=== PATIENT | female | born 1955 | race Caucasian/White ===

== ENCOUNTER 2017-10-28 23:15 | Emergency (ER) | payer OTHER, MEDICAID, MEDICARE ==
[2017-10-29 01:00] LABS: AMPHETAMINES LEVEL URINE NEGATIVE (NEGATIVE); BARBITURATES URINE NEGATIVE (NEGATIVE); BENZODIAZEPINES URINE NEGATIVE (NEGATIVE); CANNABINOIDS URINE NEGATIVE (NEGATIVE); COCAINE METABOLITE URINE NEGATIVE (NEGATIVE); METHADONE URINE NEGATIVE (NEGATIVE); OPIATES URINE NEGATIVE (NEGATIVE); PHENCYCLIDINE URINE NEGATIVE (NEGATIVE)
== END 2017-10-29 02:32 | disposition home or self-care (01) ==
LOC: M ED 23:15
DX: F32.1 Major depressive disorder, single episode, moderate (principal); F17.210 Nicotine dependence, cigarettes, uncomplicated; Z88.1 Allergy status to other antibiotic agents; Z79.899 Other long term (current) drug therapy; Z79.02 Long term (current) use of antithrombotics/antiplatelets
CPT/HCPCS: 80307

== ENCOUNTER 2018-10-02 09:54 | Emergency (ER) | payer OTHER ==
[~2018-10-02] VITALS: Ht 167.6 cm; Wt 63.4 kg
[2018-10-02 09:54] VITALS: BP 147/67
[~2018-10-02 09:54] MED LIST: AMLO5TAB6; ATOR1TAB21; CLOP75TA2; ESCI10TA2; GABA-1171; LABE10TAB; PANT40TA3
[2018-10-02] MEDS ORDERED: ASPI1TAB PO (10:08)
[2018-10-02] MEDS ORDERED: NORV5TAB PO (10:08)
[2018-10-02] MEDS ORDERED: methylPREDNISolone INJ 125 MG/2 ML VIAL (J2930) IM ONE (10:15)
[2018-10-02] MEDS ORDERED: ACETAMINOPHEN TAB 650MG DOSE (2X325MG) PO ONE (10:15)
--- NOTE | 2018-10-02 10:47 | REP ---
Clinical: Fall with radiculopathy. Technique: Axial noncontrast images from the skull base to the thoracic inlet with coronal and sagittal re-formations Findings: Normal alignment and lordosis is maintained. Cervical vertebral bodies including transverse processes and spinous processes are intact and there is no evidence for acute fracture / compression injury or subluxation. Spinal canal is patent. Posterior elements are intact. Paravertebral soft tissues are normal. Impression: Normal noncontrast cervical spine CT. No evidence for acute pathology or trauma/injury. Electronically Signed by Walter Dent MD 10/02/2018 10:39 A
[2018-10-02] MEDS ORDERED: ZANA4TAB PO (11:02)
== END 2018-10-02 11:15 | disposition home or self-care (01) ==
LOC: M ED 09:54
DX: S46.912A Strain of unspecified muscle, fascia and tendon at shoulder and upper arm level, left arm, initial encounter (principal); X50.0XXA Overexertion from strenuous movement or load, initial encounter; Y92.89 Other specified places as the place of occurrence of the external cause; Y99.0 Civilian activity done for income or pay; I10 Essential (primary) hypertension; F33.9 Major depressive disorder, recurrent, unspecified; F41.9 Anxiety disorder, unspecified; E78.00 Pure hypercholesterolemia, unspecified; Z95.1 Presence of aortocoronary bypass graft; Z79.899 Other long term (current) drug therapy; Z88.1 Allergy status to other antibiotic agents; Z88.8 Allergy status to other drugs, medicaments and biological substances; F17.210 Nicotine dependence, cigarettes, uncomplicated
CPT/HCPCS: 72125; 96372; 99282; J2930

== ENCOUNTER → 2018-11-04 | Outpatient (CLI) | payer OTHER ==
[~2018-11-04] MED LIST changes: +ASPI1TAB PO; +NORV5TAB PO; +ZANA4TAB PO
== END ==
LOC: M OUTALCOH 09:15
PROVIDERS: ATTEND Psychiatry & Neurology Psychiatry
DX: Z03.89 Encounter for observation for other suspected diseases and conditions ruled out (principal)

== ENCOUNTER 2018-11-24 09:50 | Outpatient (RCR) | payer OTHER | END 2018-11-28 | LOC: M OUTALCOH 09:50 | PROVIDERS: ATTEND Psychiatry & Neurology Psychiatry | DX: F10.10 Alcohol abuse, uncomplicated (principal) ==

== ENCOUNTER → 2018-12-21 | Outpatient (CLI) | payer OTHER ==
[~2018-12-21] MED LIST changes: -ASPI1TAB PO; +ASPI81TA26 PO
== END ==
LOC: M OUTALCOH 09:19
PROVIDERS: ATTEND Psychiatry & Neurology Psychiatry
DX: F10.10 Alcohol abuse, uncomplicated (principal)

== ENCOUNTER → 2018-12-28 | Outpatient (RCR) | payer OTHER | LOC: M OUTALCOH 09:43 | PROVIDERS: ATTEND Psychiatry & Neurology Psychiatry | DX: F10.10 Alcohol abuse, uncomplicated (principal); F17.200 Nicotine dependence, unspecified, uncomplicated ==

== ENCOUNTER 2019-01-25 16:00 | Outpatient (RCR) | payer OTHER | END 2019-01-28 | LOC: M OUTALCOH 16:00 | PROVIDERS: ATTEND Psychiatry & Neurology Psychiatry | DX: F10.10 Alcohol abuse, uncomplicated (principal); F17.200 Nicotine dependence, unspecified, uncomplicated ==

== ENCOUNTER 2019-02-23 12:00 | Outpatient (RCR) | payer OTHER, SELFPAY | END 2019-02-27 | LOC: M OUTALCOH 12:00 | PROVIDERS: ATTEND Psychiatry & Neurology Psychiatry | DX: F10.10 Alcohol abuse, uncomplicated (principal); F17.200 Nicotine dependence, unspecified, uncomplicated ==

== ENCOUNTER 2019-03-01 10:08 | Outpatient (RCR) | payer SELFPAY | END 2019-03-30 | LOC: M OUTALCOH 10:08 | PROVIDERS: ATTEND Psychiatry & Neurology Psychiatry | DX: F10.10 Alcohol abuse, uncomplicated (principal); F17.200 Nicotine dependence, unspecified, uncomplicated ==

== ENCOUNTER → 2019-11-07 | Outpatient (CLI) | payer MEDICARE, MEDICAID | LOC: M PLALAB 15:42 | PROVIDERS: ATTEND Surgery | DX: Z13.79 Encounter for other screening for genetic and chromosomal anomalies (principal) ==

== ENCOUNTER → 2019-11-18 | Outpatient (CLI) | payer MEDICAID, MEDICARE ==
[~2019-11-18] MED LIST changes: +PROHANCE 279.3MG/ML 15ML VIAL (A9576) As Ordered ONE
--- NOTE | 2019-11-21 14:06 | REP ---
MRI BILATERAL BREAST WITH AND WITHOUT CONTRAST: HISTORY: Right breast ductal carcinoma in situ. Comparison mammogram 10/06/2019 and diagnostic mammogram and postbiopsy mammogram 10/25/2019. The patient has had recent stereotactic biopsy of the right breast for microcalcifications in the lateral aspect. The biopsy was performed 10/25/2019. TECHNIQUE: MRI of bilateral breasts performed in the axial, coronal and sagittal planes prior to and following the intravenous administration of 13 mL ProHance. Images are evaluated in the [employer] software including dynamic post IV gadolinium axial T1 fat sat images, subtraction images, color overlay images and CAD images. Moderate fibroglandular tissue is seen bilaterally. There is mild background parenchymal enhancement. There is no axillary adenopathy. There is focal small artifact in the lateral right breast at about 9-o'clock position from the recently placed biopsy clip. There is linear mild ill-defined edema and enhancement extending both medially and laterally from the site of the metallic clip, along the tract of the biopsy. This is most consistent with mild postbiopsy edema, hemorrhage and granulation tissue. No suspicious enhancing mass or morphologic abnormality is seen bilaterally. Artifact is seen along the sternum from prior sternotomy. IMPRESSION: BIRADS category 6 known breast cancer lateral right breast at approximately 9 -o'clock position. There is a metallic clip at that location placed following the recent stereotactic biopsy 10/25/2019. That biopsy showed ductal carcinoma in situ. There is mild ill-defined adjacent high signal edema on T2-weighted images. There is mild enhancing granulation tissue in the tract of the biopsy. There is no suspicious enhancing mass or morphologic abnormality bilaterally. Electronically Signed by Cheikh Alfred MD 11/21/2019 02:51 P
== END ==
LOC: M RAD 13:58
PROVIDERS: ATTEND Surgery
DX: D05.11 Intraductal carcinoma in situ of right breast (principal)
CPT/HCPCS: A9576; C8908

== ENCOUNTER → 2019-11-28 | Outpatient (CLI) | payer MEDICAID ==
[~2019-11-28] MED LIST changes: +AMLO10TA5 PO; -ESCI10TA2; +ESCI10TA2 PO; +KEFL500C17 PO; +LOSA100T50 PO; +NEUR100C PO; +OXYC1TAB23 PO; -PANT40TA3; +PANT40TA3 PO; -PROHANCE 279.3MG/ML 15ML VIAL (A9576) As Ordered ONE; +ROSU40TA4 PO; +ROSU5TAB5 PO; +VITA50005 PO; +vitamin B12 PO
--- NOTE | 2019-11-28 10:30 | REPPI ---
Chest x-ray: Two views. History: Preop. Findings: The lungs are well inflated and clear. Median sternotomy wires and clips are noted. Coronary artery stent material is visible. The heart is not enlarged. The pleural angles are sharp. Pulmonary vasculature is not increased. No significant bony abnormality is seen. Impression: No active disease. Electronically Signed by Breezy Rubio MD 11/28/2019 10:22 A
== END ==
LOC: M PLAIMG 09:48
PROVIDERS: ATTEND Surgery
DX: Z01.818 Encounter for other preprocedural examination (principal)

== ENCOUNTER 2019-11-29 10:26 | Observation (INO) | payer MEDICAID ==
[2019-11-29] VITALS (7 sets, daily range): BP systolic 130–141; BP diastolic 61–68
[~2019-11-29] VITALS: Ht 165.1 cm; Wt 66.0 kg
[~2019-11-29 10:26] MED LIST changes: +HEPARIN SOD (PORCINE) 5000 UNITS/ML VIAL (J1644 PER 1000UNITS) SQ ONE; -KEFL500C17 PO; +LIDOCAINE 1% MDV 20ML VIAL SQ PRN; +LR 1,000 ML IV ONE; -OXYC1TAB23 PO; +ceFAZolin SOD 2 GM in IV 1 EA IV ONE
[2019-11-29] MEDS ORDERED: KETOROLAC 60 MG/2 ML VIAL (J1885) As Ordered ONE (11:10)
[2019-11-29] MEDS ORDERED: propofoL 200 MG/20 ML VIAL As Ordered ONE ×2 (11:13→12:11)
[2019-11-29] MEDS ORDERED: LIDOCAINE 2% INJ 100 MG/5 ML SDV (FOR ANES.) As Ordered ONE ×2 (11:13→12:34)
[2019-11-29] MEDS ORDERED: MIDAZOLAM INJ 2 MG/2 ML VIAL (J2250) As Ordered ONE (11:14)
[2019-11-29] MEDS ORDERED: dexameTHASONE 4 MG/ML 1ML VIAL (J1100 PER 1MG) As Ordered ONE (11:14)
[2019-11-29] MEDS ORDERED: ONDANSETRON 4MG/2ML VIAL (J2405) As Ordered ONE (11:14)
[2019-11-29] MEDS ORDERED: fentaNYL 100 MCG/2 ML INJECTION (J3010) As Ordered ONE ×2 (11:14→14:39)
[2019-11-29] MEDS ORDERED: ROCURONIUM BROMIDE 50 MG/5 ML VIAL As Ordered ONE (11:14)
[2019-11-29] MEDS ORDERED: BUPIVACAINE HCL 0.25% 30ML VIAL As Ordered ONE (13:02)
[2019-11-29] MEDS ORDERED: LIDOCAINE 1% SDV INJ 30 ML VIAL As Ordered ONE (13:02)
[2019-11-29] MEDS ORDERED: BUPIVACAINE LIPOSOME/PF 1.3% 20ML VIAL (13.3MG/ML)(EXPAREL)(C9290 PER1MG) As Ordered ONE (13:39)
[2019-11-29] MEDS ORDERED: GENTAMICIN SULF INJ 80MG/2ML VIAL (J1580) As Ordered ONE (13:43)
--- NOTE | 2019-11-29 13:49 | REP ---
Right Breast Lymphoscintigraphy The procedure was performed by KOLTON Cadena, under the direct supervision of Dr. Alfred. The risks and benefits of the procedure were explained to the patient and informed consent was obtained both verbally and written. Directly prior to the start of the procedure, a formal timeout was completed in the procedure room. Using topical anesthetic and sterile technique .997 mCi of technetium 99m filtered sulfur colloid was injected subdermally in eight fractionated periareolar injections. Images obtained 1 hour after injection show a dominant axillary focus. Impression: 1. Right-sided dominant axillary focus. Reviewed by KOLTON Payan 11/29/2019 01:41 P Electronically Signed by Cheikh Alfred MD 11/29/2019 01:42 P
[2019-11-29] MEDS ORDERED: ePHEDrine SULFATE 25 MG/5 ML(5MG/ML) SYRINGE As Ordered ONE ×3 (14:17→15:56)
[2019-11-29] MEDS ORDERED: LACRILUBE (AKWA TEARS) OPHTH OINT 3.5 GM As Ordered ONE (14:23)
[2019-11-29] MEDS ORDERED: ACETAMINOPHEN 1000MG 100ML IV BTL (OFIRMEV) (J0131 PER 10MG) As Ordered ONE (14:36)
[2019-11-29] MEDS ORDERED: SUGAMMADEX SODIUM 500 MG/5 ML VIAL (BRIDION) As Ordered ONE (15:54)
--- NOTE | 2019-11-29 16:55 | POST-OPPD ---
Postoperative Procedure Note Date Of Procedure: Nov 29, 2019 PREOPERATIVE DIAGNOSIS: Right breast cancer, Acquired deformity right breast POSTOPERATIVE DIAGNOSIS: same FINDINGS: right breast mastectomy. 235gm PROCEDURE: Immediate right breast pre pectoral reconstruction with end worker, artificial dermis and with intraoperative florescence angiography (SPY). SURGEON: Dr Syed LOBBY CONCIERGE: Dr Booth ANESTHESIA: general SPECIMENS: none ESTIMATED BLOOD LOSS: 25cc total case REPLACED: none DRAINS: 19F Anibal drain COMPLICATIONS: none POSTOPERATIVE CONDITION: stable OTTO Dalton DO Nov 29, 2019 16:55
[2019-11-29] MEDS ORDERED: LR 1,000 ML IV SCH (17:00)
[2019-11-29] MEDS ORDERED: HYDROMORPHONE HCL 0.5 MG/ 0.5 ML SYRINGE (J1170 PER 1) IV PRN (17:00)
[2019-11-29] MEDS ORDERED: ONDANSETRON 4MG/2ML VIAL (J2405) IV PRN (17:00)
[2019-11-29] MEDS ORDERED: fentaNYL 100 MCG/2 ML INJECTION (J3010) IV PRN (17:00)
[2019-11-29] MEDS ORDERED: oxyCODONE 5MG TAB PO PRN (17:00)
[2019-11-29] MEDS ORDERED: ACETAMINOPHEN TAB 650MG DOSE (2X325MG) PO PRN (18:30)
[2019-11-29] MEDS ORDERED: MOM 30ML SUSPENSION UDC PO PRN (18:30)
--- NOTE | 2019-11-29 18:42 | HPEPDOC ---
[facility] Medical History & Physical Date of Admission Nov 29, 2019 Date of Service: Nov 29, 2019 Attending Physician: KVNG ARENAS MD History and Physical CHIEF COMPLAINT: R breast mastectomy with pre-pectoral reconstruction with first coat operator HISTORY OF PRESENT ILLNESS: Leonor North is a 64 YO F with recently diagnosed R breast DCIS who today underwent R breast mastectomy with Drs. Syed and Leobardo. Hospitalist team called for admission and postoperative care. Patient reports she is not currently in any pain. She has R chest wall dressing and drain in place. She also has nerve block in place. She denies any shortness of breath, chest pain, abdominal pain or nausea. PAST MEDICAL HISTORY: hypertension hypercholesterolemia Arthritis R Breast DCIS - 10/2019 urinary incontinence PAST SURGICAL HISTORY: CAD Hx of [place] in 2012 open heart surgery - blockage 2012 cardiac stents Right breast biopsy - DCIS 10/20 hysterectomy bso tubal ligation carpal tunnel surgery 1997- excisional biopsy - benign R Breast Bx (@[facility]) - DCIS, high grade 10/25/19 SOCIAL HISTORY: Current 1/2 ppd smoker x1 year, reports 1-2 drinks of alcohol weekly, no other drugs FAMILY HISTORY: Father with brain cancer ALLERGIES: Please see below. REVIEW OF SYSTEMS: CONSTITUTIONAL: Feels well. No fever or chills HEENT: denies vision changes, no sinus problems, denies any trouble swallowing CARDIOVASCULAR: no palpitations RESPIRATORY: Denies any shortness of breath GENITOURINARY: No dysuria MUSCULOSKELETAL: Denies any joint/muscle pain GASTROINTESTINAL: Denies abdominal pain, no nausea/vomiting/diarrhea SKIN: No new rashes or lesions NEUROLOGICAL: No loss of sensation PSYCHIATRIC: Reports normal mood, no delusions or hallucinations ENDOCRINE: No hot/cold intolerance HEMATOLOGIC/LYMPHATIC: No easy bruising, no lumps/bumps ALLERGIC/IMMUNOLOGIC: No sinus symptoms HOME MEDICATIONS: Please see below. PHYSICAL EXAMINATION: VITAL SIGNS: Please see below. GENERAL APPEARANCE: Laying in bed, appears stated age, no acute distress, calm, cooperative HEENT: EOMI, PERRLA, neck is supple with no thyromegaly or lymphadenopathy RESPIRATORY: Lungs are clear to auscultation bilaterally with no adventitious b reath sounds appreciated CARDIOVASCULAR: no JVD, RRR,no murmurs/rubs/gallops CHEST: R chest wall surgical bandage in place with surgical drain in place. No surrounding tenderness/erythema ABDOMEN: Soft, nontender to palpation in all four quadrants, no mass es/organomegaly EXTREMITIES: no clubbing, cyanosis or edema noted NEUROLOGICAL: No obvious focal deficits PSYCHIATRIC: normal mood/affect Skin: No rashes or ulcers. LN: No significant cervical or inguinal lymphadenopathy LABORATORY DATA: See below. IMAGING: none MICROBIOLOGY: Please see below. ASSESSMENT: This is a 64 YO F with history of CAD and recent diagnosis of R DCIS who is s/p R breast mastectomy and tissue first coat operator placement. Hospitalist team was called for medical and postoperative management. . PLAN: 1. R breast mastectomy: -Postoperative wound care per Drs. Syed and Leobardo -Continue IV Ancef with plan to dc home on oral Cephalexin -Pain management with Tylenol, Percocet 2 tabs Q6h as needed for pain -IVF LR 75cc/hr for now 2. History of CAD: -Continue Aspirin 3. HTN: -Continue Amlodipine and Losartan 4. Chronic pain: -Continue Gabapentin 5. Mood disorder: -Continue Lexapro DISPO: Pending clinical improvement. Possible discharge in 24-48h Attending Addendum: I discussed the care/management of this patient with Resident in detail and agree with the plan above. Vital Signs Vital Signs Date Time Temp Pulse Resp B/P (MAP) Pulse Ox O2 Delivery O2 Flow Rate FiO2 11/29/19 18:12 98.1 68 16 135/62 (86) 96 Nasal Cannula 2 Home Medications Scheduled Amlodipine Besylate (Amlodipine Besylate) 10 Mg Tablet, 10 MG PO DAILY Aspirin (Aspirin EC) 81 Mg Tab, 1 TAB PO DAILY for pain Cephalexin (Keflex) 500 Mg Capsule, 500 MG PO TID Ergocalciferol (Vitamin D2) (Vitamin D2) 50,000 Units Cap, 1 CAP PO QWEEK On Sundays Escitalopram Oxalate (Escitalopram Oxalate) 10 Mg Tab, 1 TAB PO DAILY Gabapentin (Neurontin) 100 Mg Capsule, 200 MG PO BID Losartan Potassium (Losartan Potassium) 100 Mg Tablet, 100 MG PO QHS Rosuvastatin Calcium (Rosuvastatin Calcium) 40 Mg Tablet, 40 MG PO DAILY Scheduled PRN Oxycodone HCl/Acetaminophen (Oxycodone-Acetaminophen 5-325) 1 Each Tablet, 1 TAB PO TIDP PRN for pain Allergies Coded Allergies: azithromycin (Verified Allergy, Severe, swelling, 11/25/19) lisinopril (Verified Adverse Reaction, Mild, cough, 11/25/19) A-FIB/CHADSVASC A-FIB History Current/History of A-Fib/PAF?: No GME ATTESTATION GME ATTESTATION My faculty preceptor for this patient encounter was physically present during the encounter and was fully available. All aspects of the patient interview, examination, medical decision making process, and medical care plan development were reviewed and approved by the faculty preceptor. The faculty preceptor is aware and concurs with the plan as stated in the body of this note and will attest to such by his/her cosignature. ANA PATEL MD Nov 29, 2019 18:42 KVNG ARENAS MD Nov 30, 2019 20:25
[2019-11-29] MEDS ORDERED: PERCOCET 5MG/325MG TAB PO PRN (18:45)
[2019-11-29] MEDS: LR 1,000 ML IV SCH (19:39)
[2019-11-29] MEDS: GABAPENTIN 100 MG CAP PO SCH (20:11)
[2019-11-29] MEDS: DOCUSATE SODIUM 100 MG CAP PO SCH (20:11)
[2019-11-29] MEDS ORDERED: LOSARTAN 50 MG TAB PO SCH (21:00)
--- NOTE | 2019-11-29 21:11 | RO ---
DATE OF PROCEDURE: 11/29/2019 PREPROCEDURE DIAGNOSIS: Right breast cancer, acquired deformity right breast. POSTPROCEDURE DIAGNOSIS: Right breast cancer, acquired deformity right breast. PROCEDURE: Immediate right breast prepectoral reconstruction with laborer vegetable farm, artificial dermis and with intraoperative fluorescent angiography using SPY. SURGEON: Dr. Yanely Syed MANAGER VOICE: Dr. Mary Booth ANESTHESIA: General. Specimens were sent in the first part of the procedure. Blood loss: 25 mL for the total case; no replacement. One 19-[place]oz[place]ican Anibal drain. No complications. DESCRIPTION OF PROCEDURE: This is a 64-year-old female diagnosed with right ductal carcinoma in situ (DCIS). Patient is scheduled for right simple mastectomy with sentinel lymph node biopsy with immediate reconstruction. Patient was counseled preoperatively regarding the reconstruction. She is a good candidate for the prepectoral reconstruction. Her measurements are indicating that she would benefit from 275 laborer vegetable farm. All the risks and benefits and alternatives discussed with the patient in detail, and she is ready to proceed. The day of surgery, she was seen in the holding area, and then she was brought into the operating room and the mastectomy part of procedure was performed by Dr. Booth, and it is dictated separately with a sentinel lymph node biopsy as well. After that portion of the procedure was completed, the area was painted with Betadine solution and then the clean drapes were outlining the incision. The incision that we marked was the inferior lateral inframammary incision. We examined the pocket, has good hemostasis. Flaps are in good condition. The fluorescent intraoperative angiography is done by infiltrating the dye by anesthesia, 2 mL, and then the confirmation of angiography is done with good perfusion throughout the flap with some delayed perfusion around the nipple areolar complex. While Dr. Booth is irrigating the pocket with antibiotic solution and also confirming the hemostasis, I brought in the laborer vegetable farm to the back table, as well as the AlloMax, which we will be using as an artificial dermis 16 x 20 cm. AlloMax was soaked in normal saline and antibiotic solution and was washed in three bob, and then we wrapped the AlloMax around the fully expanded to 275 mL with air laborer vegetable farm, which was a [place] moderate profile laborer vegetable farm. The wrapping was done, it is a complete wrapping, and #2-0 PDS sutures were used on the back of the laborer vegetable farm to suture them in place. Then, we brought in our implant to the field and it was introduced into the pocket. After good location was confirmed, the stay stitches were tacked to the pectoralis muscle superiorly, medially, inferiorly, and laterally using #2-0 PDS sutures. A 19-[place]ozamb[place] Anibal drain was placed through a separate stab incision and placed in the lateral position of the breast, and then we started our closure. I felt that the laborer vegetable farm was slightly too tight for the pocket at this moment, so we deflated it down 150 mL of air and tension-free closure was completed in layers with #3-0 Vicryl, #2-0 Vicryl, #3-0 Monocryl and #4-0 Monocryl sutures. Then, we repeated our SPY angiography, fluorescent angiography using SPY, and at this point, we had confirmation of complete perfusion throughout the whole breast, including the nipple areolar complex. We used a specialized Prevena dressing for the dressing, and it was fitted with a small dressing without any difficulties, and the drain was dressed separately with a sterile gauze and Tegaderm. The patient was extubated in the operating room without any difficulties and transferred to the recovery room in stable condition. As a note, we also injected a total of 12 mL of Exparel solution into the pectoralis major muscle. ABDELRAHMAND
--- NOTE | 2019-11-29 21:44 | ROOPDOC ---
[facility] Report Of Operation Report of Operation DATE OF PROCEDURE: 11/29/19 PREPROCEDURE DIAGNOSES: Right breast high grade DCIS with necrosis POSTPROCEDURE DIAGNOSES: Right breast high-grade DCIS with necrosis PROCEDURE: Right breast nipple cystic doing and right sentinel lymph node biopsy with immediate tissue sports physiologist placement SURGEON: Mando Booth PEST CONTROL WORKER HELPER: Yanely Syed ANESTHESIA: Anesthesia was general ESTIMATED BLOOD LOSS: Approximately 25 mL. COMPLICATIONS: None. REMARKS: 2 lymph nodes with high signal and one palpable lymph nodes were identified DESCRIPTION OF PROCEDURE: INDICATIONS: Ms. North is a 64 year old lady who was found to have over 3 cm calcifications of her right breast mammogram. Biopsy of the calcifications was done and showed high grade DCIS with necrosis. No ER was done on the biopsy specimen. We discussed surgical options and patient opted for mastectomy. She is a candidate for nipple sparing mastectomy. I explained to her that if the cancer is found in the tissue removed directly from underneath the nipple then unfortunately the nipple will need to be removed in the future. I explained to the patient that right breast sentinel lymph node biopsy is also indicated b ecause if invasive component is found in the specimen we will not be able to sample the lymph nodes at later time as the breast will be gone. Risks and possible complications of surgical procedure including bleeding, infection and injury to surrounding structures were explained to the patient and she wished to proceed. Consent was signed. Subcutaneous heparin 5000 units was given to patient in the preop area. Lymphoscintigraphy was reviewed preoperatively and the tracer was found in the right axilla. DETAILS: Patient was taken to the operating room and placed supine on the operating room table. A sign in was called stating patients name, date of and the procedure to be done. Preoperative antibiotics were infused. Smooth induction of general anesthesia was done. Patients hands were extended on arm rests. Care was taken not to over extend patients arms. English catheter was placed. Patients right breast and axilla were prepped and draped in the usual fashion. Neoprobe was used to delonte the site of maximal signal in the axilla. Appropriate time out was done and patients name, date of , and the procedure to be done were confirmed. Procedure was started with right mastectomy. Right inferolateral incision was made at the inframammary fold with scalpel number 15. Subcutaneous flaps were developed using electrocautery. Dissection was carried from inframammary fold inferiorly to the sternum medially, inferior aspect of clavicle superiorly and axilla laterally. The breast tissue was dissected from the muscle posteriorly and pectoralis fascia was taken with the specimen. At the nipple level the mastectomy specimen site was marked with the single long stitch. In addition, a small amount of the tissue from the base of the nipple was removed and sent to pathology as retroareolar tissue separately. The dissection of the breast specimen was carried all the way to the Cedric making sure that axilla is not entered prematurely. Next, mastectomy cavity was irrigated and hemostasis was achieved. Doctor Powers assistance was critical in achieving adequate hemostasis and progressing the case safely. Breast mastectomy specimen was marked for orientation with double short stitch marking superior edge of mastectomy and double long stitch marking latera edge of mastectomy. The specimen was weighted and weight of 235 grams was reported. The specimen was then placed in formaldehyde, and passed to pathology. Next, our attention was turned toward the right axilla which was accessed from the mastectomy site. Clavipectoral fascia was opened over the site of maximum Neoprobe signal. Area of high signal was identified at the lateral border of the pectoralis major muscle. [place] lymph node #1 was identified and 10 second ex-vivo count [place] [id number]. Second sentinel lymph node was identified and the 10 second ex-vivo count was 2686. Next to that node there was another palpable node without any signal. This node was also removed as it was palpable. Specimens were labeled appropriately and sent to pathology. Axilla was explored for presence of any additional lymph nodes and none were identified. 10 second count of the background was 156. Doctor Powers assistance with identification of sentinel lymph nodes was again critical to avoid injury to surrounding nerves. The axilla was irrigated and hemostasis was achieved. Next, clavipectoral fascia was closed with interrupted 3-0 Vicryl Stitches. At this point, 19 [place] Anibal drain was placed into the mastectomy cavity through a separate stab incision and secured at the skin with stitches. Next, pectoral and serratus plane blocks on the right side were also done with Exparel by Dr. Syed. The right nipple sparing mastectomy and right sentinel lymph node biopsy portion of the procedure was completed. Instrument and sponge count was correct. The chest was re-prepped and re-draped for Dr Powers part of procedure involving tissue sports physiologist placement. Please refer to Dr. Powers note for details of this part of the procedure. I assisted with the reconstruction part of the procedure as well and stayed scrubbed throughout entire procedure. Right breast incision was closed in the usual fashion. Deep dermal sutures were placed with 2-0 Vicryl to approximate mastectomy site edges. Dermis was closed with 3-0 Vicryl. Skin was closed with 4-0 Monocryl. Final instrument and sponge count was correct. PROVENA wound vac dressing was placed over the entire breast including the incision and the nipple. Patient emerged from general anesthesia without any problems. Patient tolerated procedure well and was taken to recovery unit in stable condition. . MANDO BOOTH DO Nov 29, 2019 21:44
[2019-11-30 02:00] VITALS: BP 143/66
[2019-11-30 05:35] LABS: HEMATOCRIT 40.1 % (36.0-47.0); HEMOGLOBIN 13.6 g/dl (12.0-15.5); MEAN CORPUSCULAR HGB CONC 33.9 g/dl (32.0-36.5); MEAN CORPUSCULAR VOLUME 91.3 fl (80.0-96.0); PLATELET COUNT, AUTOMATED 305 10^3/uL (150-450); RED BLOOD COUNT 4.39 10^6/uL (4.00-5.40); WHITE BLOOD COUNT 11.7 10^3/uL (4.0-10.0)
[2019-11-30 06:00] VITALS: BP 146/66
[2019-11-30 06:00] LABS: ALBUMIN 3.1 GM/DL (3.2-5.2); ALT/SGPT 19 U/L (12-78); BILIRUBIN,TOTAL 0.4 MG/DL (0.2-1.0); BLOOD UREA NITROGEN 12 MG/DL (7-18); CALCIUM LEVEL 8.5 MG/DL (8.8-10.2); CARBON DIOXIDE LEVEL 25 MEQ/L (21-32); CHLORIDE LEVEL 107 MEQ/L (98-107); CREATININE FOR GFR 0.77 MG/DL (0.55-1.30); GLOMERULAR FILTRATION RATE > 60.0 (>45); GLUCOSE, FASTING 132 MG/DL (70-100); POTASSIUM SERUM 4.1 MEQ/L (3.5-5.1); SODIUM LEVEL 137 MEQ/L (136-145); TOTAL PROTEIN 6.4 GM/DL (6.4-8.2)
[2019-11-30] MEDS: LR 1,000 ML IV SCH (07:29)
[2019-11-30] MEDS: DOCUSATE SODIUM 100 MG CAP PO SCH (07:35)
[2019-11-30] MEDS: GABAPENTIN 100 MG CAP PO SCH (07:57)
[2019-11-30] MEDS ORDERED: ceFAZolin SOD 1 GM in D5W MINI-BAG PLUS 50 ML IV SCH (08:00)
[2019-11-30] MEDS ORDERED: amLODIPine 10 MG TAB PO SCH (09:00)
[2019-11-30] MEDS ORDERED: ASPIRIN 81 MG ENTERIC TAB PO SCH (09:00)
[2019-11-30] MEDS ORDERED: ESCITALOPRAM OXALATE 10 MG TAB (LEXAPRO) PO SCH (09:00)
[2019-11-30] MEDS ORDERED: ceFAZolin SOD 1 GM in D5W MINI-BAG PLUS 50 ML IV ONE (09:00)
--- NOTE | 2019-11-30 10:01 | IPNPDOC ---
Subjective General Date Seen: Nov 30, 2019 Subject Chief Complaint/History The patient is a 64-year-old female admitted with a reason for visit of Right Breast Ductal Carcinoma In Situ High Grade. Patient s/p Right breast mastectomy with SLNB and pre pectoral reconstruction POD 1. Patient is seen with Dr Booth. Patient states she is feeling well. Taking Tylenol for pain. No CP, SOB, headache. Current Medications Current Medications Current Medications Medications (Trade) Dose Ordered Sig/Cristina Route PRN Reason Start Time Stop Time Status Last Admin Dose Admin Acetaminophen (Tylenol Tab) 650 mg Q4H PRN PO PAIN OR FEVER 11/29/19 18:30 11/30/19 04:04 Amlodipine Besylate (Norvasc) 10 mg DAILY PO 11/30/19 09:00 11/30/19 07:58 Aspirin (Ecotrin) 81 mg DAILY PO 11/30/19 09:00 11/30/19 07:58 Cefazolin Sodium 1 gm/Dextrose 50 ml @ 100 mls/hr Q6H IV 11/30/19 08:00 11/30/19 08:08 Docusate Sodium (Colace) 100 mg BID PO 11/29/19 21:00 11/29/19 20:11 Escitalopram Oxalate (Lexapro) 10 mg DAILY PO 11/30/19 09:00 11/30/19 07:58 Fentanyl Citrate (Sublimaze) 25 mcg Q5MP PRN IV PAIN LEVEL 5-10 11/29/19 17:00 11/29/19 18:00 DC Gabapentin (Neurontin) 200 mg BID PO 11/29/19 21:00 11/30/19 07:57 Hydromorphone HCl (Dilaudid) 0.2 mg Q5MP PRN IV PAIN LEVEL 4-7 11/29/19 17:00 11/29/19 18:00 DC Lactated Ringer's 1,000 ml @ 75 mls/hr [id number] IV 11/29/19 18:45 11/30/19 21:24 11/29/19 19:39 Lactated Ringer's 1,000 ml @ 100 mls/hr Q10H IV 11/29/19 17:00 11/29/19 18:00 DC Lidocaine HCl (LIDOCAINE 1% MDV 20ml) 0.1 ml ONCE PRN SQ DISCOMFORT BEFORE IV START 11/29/19 06:00 Losartan Potassium (Cozaar) 100 mg QHS PO 11/29/19 21:00 11/29/19 20:11 Magnesium Hydroxide (Milk Of Magnesia) 30 ml DAILY PRN PO CONSTIPATION 11/29/19 18:30 Ondansetron HCl (ZOFRAN INJection) 4 mg Q4HP PRN IV NAUSEA OR VOMITING 11/29/19 17:00 11/29/19 18:00 DC Oxycodone HCl (Roxicodone, Oxyir) 5 mg ASDIRECTED PRN PO PAIN LEVEL 1-4 11/29/19 17:00 11/29/19 18:00 DC 11/29/19 17:41 Oxycodone/ Acetaminophen (Percocet 5mg/ 325mg Tablet) 2 tab Q6HP PRN PO SEVERE PAIN (PS 8-10) 11/29/19 18:45 Allergies Coded Allergies: azithromycin (Verified Allergy, Severe, swelling, 11/25/19) lisinopril (Verified Adverse Reaction, Mild, cough, 11/25/19) Objective Physical Examination Examination GENERAL APPEARANCE:Patient seen, laying in bed, awake, alert, and oriented. Comfortable, in no acute distress. SKIN: Warm and moist. BREAST: Right and left soft, non-tender incisions intact. FAITH drains: 40 cc/24 hr. NAC: Viable, warm, symmetrical, mild post-op ecchymosis, no expanding hematoma. LUNGS: Clear to auscultation bilaterally. No wheezing appreciated. HEART: No chest wall abnormalities. Regular rate and rhythm with no murmurs appreciated. EXTREMITIES: No edema identified. No calf tenderness. Vital Signs Vital Signs Date Time Temp Pulse Resp B/P (MAP) Pulse Ox O2 Delivery O2 Flow Rate FiO2 11/30/19 06:00 97.4 58 19 146/66 (92) 97 Room Air 11/29/19 18:45 2.0 I&Os I&O- Last 24 Hours up to 6 AM 11/30/19 06:00 Intake Total 3170 ml Output Total 1485 ml Balance 1685 ml Laboratory Data Labs 24H Laboratory Tests 2 11/30/19 05:23: Nucleated Red Blood Cells % (auto) 0.0, Anion Gap 5L, Glomerular Filtration Rate > 60.0, Calcium Level 8.5L, Magnesium Level 2.0, Total Bilirubin 0.4, Aspartate Amino Transf (AST/SGOT) 16, Alanine Aminotransferase (ALT/SGPT) 19, Alkaline Phosphatase 67, Total Protein 6.4, Albumin 3.1L, Albumin/Globulin Ratio 0.94L CBC/BMP Laboratory Tests 11/30/19 05:23 Impression S/p Right mastectomy with pre pectoral reconstruction. Stable for discharge. Prevena dressing to stay on for 7 days. Monitor FAITH drain F/up Plastic surgery 1 week Breast surgery 10 days. Instructions given to patient. Plan / VTE VTE Prophylaxis Ordered?: Yes OTTO RUDOLPH DO Nov 30, 2019 10:01
[2019-11-30] MEDS ORDERED: OXYC1TAB23 PO (10:06)
[2019-11-30] MEDS ORDERED: KEFL500C17 PO (10:23)
[2019-12-12] MEDS ORDERED: EXEM25TA PO (13:24)
== END 2019-11-30 11:13 | disposition home or self-care (01) ==
LOC: M SDC 10:26 → EDSTATUS 14:15 → M MS5PR 17:43
PROVIDERS: ADMIT Internal Medicine; ATTEND Surgery
DX: D05.11 Intraductal carcinoma in situ of right breast (principal); Z17.0 Estrogen receptor positive status [ER+]; I10 Essential (primary) hypertension; I25.10 Atherosclerotic heart disease of native coronary artery without angina pectoris; I25.2 Old myocardial infarction; E78.00 Pure hypercholesterolemia, unspecified; Z98.61 Coronary angioplasty status; G89.29 Other chronic pain; Z79.82 Long term (current) use of aspirin; Z79.899 Other long term (current) drug therapy; Z88.1 Allergy status to other antibiotic agents; Z88.8 Allergy status to other drugs, medicaments and biological substances; F17.218 Nicotine dependence, cigarettes, with other nicotine-induced disorders
CPT/HCPCS: 15860; 19303; 19357; 36415; 38525; 64450; 78195; 80053; 83735; 85027; 86850; 86900; 86901; 88305; 88307; 88341; 88342; 96374; A9541; C9290; J0131; J0690; J1100; J1580; J1644; J1885; J2250; J2405; J3010; Q4100

== ENCOUNTER → 2019-12-26 | Outpatient (CLI) | payer MEDICAID ==
[~2019-12-26] MED LIST changes: +EXEM25TA PO; -HEPARIN SOD (PORCINE) 5000 UNITS/ML VIAL (J1644 PER 1000UNITS) SQ ONE; +KEFL500C17 PO; -LIDOCAINE 1% MDV 20ML VIAL SQ PRN; -LR 1,000 ML IV ONE; +OXYC-517 PO; +OXYC1TAB23 PO; -ceFAZolin SOD 2 GM in IV 1 EA IV ONE
== END ==
LOC: M LABSMTC 10:11
PROVIDERS: ATTEND Internal Medicine
DX: Z01.818 Encounter for other preprocedural examination (principal); Z11.59 Encounter for screening for other viral diseases

== ENCOUNTER 2019-12-27 06:06 | Day surgery (SDC) | payer MEDICAID ==
[~2019-12-27] VITALS: Ht 167.6 cm; Wt 67.9 kg
[~2019-12-27 06:06] MED LIST changes: +LR 1,000 ML IV ONE; -OXYC-517 PO; +ceFAZolin SOD 1 GM in D5W MINI-BAG PLUS 50 ML IV ONE
[2019-12-27] MEDS ORDERED: MIDAZOLAM INJ 2MG/2ML VIAL (J2250 PER 1MG) As Ordered ONE (06:45)
[2019-12-27] MEDS ORDERED: dexameTHASONE 4 MG/ML 1ML VIAL (J1100 PER 1MG) As Ordered ONE ×2 (06:45→08:13)
[2019-12-27] MEDS ORDERED: ONDANSETRON 4MG/2ML VIAL As Ordered ONE (06:45)
[2019-12-27] MEDS ORDERED: SUGAMMADEX SODIUM 500 MG/5 ML VIAL (BRIDION) As Ordered ONE (06:45)
[2019-12-27] MEDS ORDERED: fentaNYL 250 MCG/5 ML INJECTION (J3010) As Ordered ONE (06:45)
[2019-12-27] MEDS ORDERED: ePHEDrine SULFATE 25 MG/5 ML(5MG/ML) SYRINGE As Ordered ONE (06:46)
[2019-12-27] MEDS ORDERED: ROCURONIUM BROMIDE 50 MG/5 ML VIAL As Ordered ONE (06:46)
[2019-12-27] MEDS ORDERED: LIDOCAINE 2% 100MG/5ML SDV (FOR ANES.) As Ordered ONE (06:46)
[2019-12-27] MEDS ORDERED: PHENYLephrine HCL 500 MCG/5 ML (100MCG/ML) SYRINGE (J2370) As Ordered ONE (06:46)
[2019-12-27] MEDS ORDERED: propofoL 200 MG/20 ML VIAL As Ordered ONE (06:46)
[2019-12-27] MEDS ORDERED: SCOPOLAMINE 1MG TRANSDERMAL PATCH As Ordered ONE (07:02)
[2019-12-27 07:05] LABS: HEMATOCRIT 44.6 % (36.0-47.0); MEAN CORPUSCULAR HEMOGLOBIN 31.1 pg (27.0-33.0); MEAN CORPUSCULAR HGB CONC 33.6 g/dl (32.0-36.5); MEAN CORPUSCULAR VOLUME 92.3 fl (80.0-96.0); PLATELET COUNT, AUTOMATED 303 10^3/uL (150-450); RED BLOOD COUNT 4.83 10^6/uL (4.00-5.40); WHITE BLOOD COUNT 8.3 10^3/uL (4.0-10.0)
[2019-12-27] MEDS ORDERED: SCOPOLAMINE 1MG TRANSDERMAL PATCH TOP ONE (07:15)
[2019-12-27] MEDS ORDERED: ASPIRIN 81 MG CHEW TABLET PO ONE (07:15)
[2019-12-27] MEDS ORDERED: BACITRACIN PWD 50,000 UNITS VIAL As Ordered ONE (07:21)
[2019-12-27] MEDS ORDERED: BUPIVACAINE HCL 0.25% 30ML VIAL As Ordered ONE (08:06)
[2019-12-27] MEDS ORDERED: GLYCOPYRROLATE INJ 0.2 MG/ML 2 ML VIAL As Ordered ONE (08:13)
[2019-12-27] MEDS ORDERED: KETOROLAC 60 MG/2 ML VIAL As Ordered ONE (08:16)
--- NOTE | 2019-12-27 08:54 | POST-OPPD ---
Postoperative Procedure Note Date Of Procedure: Dec 27, 2019 PREOPERATIVE DIAGNOSIS: Right reconstructed breast skin necrosis POSTOPERATIVE DIAGNOSIS: same FINDINGS: Right breast with patches of necrosis. Seroma 100cc PROCEDURE: Right reconstructed breast revision. SURGEON: Dr Rudolph NURSE RECEPTIONIST: Dr Booth ANESTHESIA: General SPECIMENS: Right breast necrotic tissue ESTIMATED BLOOD LOSS: 5 cc REPLACED: none DRAINS: 10 mm FAITH drain COMPLICATIONS: none POSTOPERATIVE CONDITION: stable [id number] OTTO RUDOLPH DO Dec 27, 2019 08:54
[2019-12-27] MEDS ORDERED: OXYC-517 PO (08:58)
[2019-12-27] MEDS ORDERED: oxyCODONE 5MG TAB PO PRN (09:00)
[2019-12-27] MEDS ORDERED: fentaNYL 100 MCG/2 ML INJECTION (J3010) IV PRN (09:00)
[2019-12-27] MEDS ORDERED: LR 1,000 ML IV SCH (09:00)
[2019-12-27] MEDS ORDERED: ONDANSETRON 4MG/2ML VIAL IV PRN (09:00)
[2019-12-27 11:00] VITALS: BP 150/73
--- NOTE | 2019-12-29 08:32 | RO ---
DATE OF PROCEDURE: 12/27/2019 PREOPERATIVE DIAGNOSIS: Right reconstructed breast skin necrosis. POSTOPERATIVE DIAGNOSIS: Right reconstructed breast skin necrosis. PROCEDURE: Right reconstructed breast revision. ATTENDING SURGEON: Dr. Yanely Syed INSTANTIZER OPERATOR: Dr. Mary Booth (who was helping with retracting, dissecting, and closure during this procedure) ANESTHESIA: General. FINDINGS: Right breast with patches of necrosis inferiorly and seroma 100 mL. SPECIMEN: Right breast necrotic tissue. BLOOD LOSS: 5 mL. No replacements. 10 mm Gwyn-Sheldon drain placed. No complications. DESCRIPTION OF PROCEDURE: This is a 64-year-old female who had right mastectomy with prepectoral reconstruction on 11/29/2019. Patient developed some tissue necrosis, which was clean dry scabs inferiorly through the nipple and inferiorly to it and extending in the lateral portion. Patient was treated conservatively, and now we are ready to excise the necrotic tissue and reshape the breast. All risks and benefits and alternatives discussed with the patient, and informed consent was obtained and she is ready to proceed. She was brought into the operating room and then placed in supine position. Preoperative antibiotics were given. Sequentials placed on the lower calves. She did get 81 mg of aspirin prior to surgery as well. General anesthesia is induced. She was prepped and draped in the usual sterile fashion. The vaccine specialist was deflated using magnet and a specialized needle. We outlined the borders of the necrotic tissue, and then incision was carried out. Dissected off all the scabs starting at the nipple point inferiorly and laterally. Good back blood flow was identified. Then, we found seroma, which was clear yellow fluid, which was evacuated and totaling 100 mL. There was no cloudiness in it. The vaccine specialist is in good position as well as the artificial dermis and partially is taking and adherent to the lateral portions of the pocket. The skin has good back flow. Then the local tissue rearrangement was created, and we were be able to close this pocket in layers. That closure was completed with #3-0 Vicryl, #3-0 Monocryl, and #5-0 plain gut sutures, creating a good closure. We decided not to re-expand the vaccine specialist today, and Prevena dressing was placed on the whole dressing and prior to closure, we also inserted 10 mm Gwyn-Sheldon drain through the lateral stab incision that was done for previous surgery. Patient was extubated in operating room without any difficulty, transferred to recovery room in stable condition. ALAINA
== END 2019-12-27 11:05 | disposition home or self-care (01) ==
LOC: M SDC 06:06
PROVIDERS: ATTEND Plastic Surgery Surgery of the Hand
DX: L76.82 Other postprocedural complications of skin and subcutaneous tissue (principal); E78.49 Other hyperlipidemia; Z98.61 Coronary angioplasty status; Z79.82 Long term (current) use of aspirin; Z79.02 Long term (current) use of antithrombotics/antiplatelets; Z79.899 Other long term (current) drug therapy; Z88.8 Allergy status to other drugs, medicaments and biological substances; Z88.1 Allergy status to other antibiotic agents; Z85.3 Personal history of malignant neoplasm of breast
CPT/HCPCS: 19380; 36415; 85027; 88304; J0690; J1100; J1885; J2250; J2370; J2405; J3010

== ENCOUNTER 2020-01-09 08:30 | Observation (INO) | payer MEDICAID ==
[~2020-01-09] VITALS: Ht 167.6 cm; Wt 68.5 kg
[~2020-01-09 08:30] MED LIST changes: -LR 1,000 ML IV ONE; +OXYC-517 PO; -ceFAZolin SOD 1 GM in D5W MINI-BAG PLUS 50 ML IV ONE
[2020-01-09 17:15] VITALS: BP 150/68
[2020-01-09] MEDS ORDERED: OXYC-517 PO (17:53)
[2020-01-09] MEDS ORDERED: ROSU40TA4 PO (17:53)
[2020-01-09] MEDS ORDERED: EXEM25TA PO (17:53)
--- NOTE | 2020-01-09 17:58 | HPEPDOC ---
[facility] Medical History & Physical Date of Admission January 09, 2020 Date of Service: January 09, [address] 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 As per patient, she underwent right-sided breast mastectomy on 11/29/19 after a diagnosis of DCIS of the right breast 10/2019. During her right-sided mastectomy there was a semiconductor assembler placed. She later had a right reconstructed revision on 12/27/2019 with a FAITH drain placed. She had been following up as outpatient with Dr. Syed. Since her last visit there has been increased serosanguineous drainage, increased erythema around the incision sites, increased necrotic appearing tissue protruding from the incision sites. She followed up with Dr. Syed recently who is going to be removing right breast semiconductor assembler in the AM. The patient denies symptoms listed below under review of systems. She has no other associated symptoms including fever, nausea, vomiting, lethargy. REVIEW OF SYSTEMS: CONSTITUTIONAL: Denies lack of energy, unexplained weight gain or weight loss, loss of appetite, fever, night sweats EYES: Denies eye drainage, eye pain, visual changes, dry/irritated eye EARS, NOSE, MOUTH, THROAT: Denies difficulty hearing, ringing in ears, mouth sores, loose teeth, sore throat, facial numbness or pain NECK: Denies swollen glands CARDIOVASCULAR: Denies irregular heartbeat, racing heart, chest pains, swelling of feet or legs, pain in legs with walking RESPIRATORY: Denies shortness of breath, night sweats, wheezing, sputum production, oxygen at home, coughing up blood, cough lasting > 1 month GASTROINTESTINAL: Denies abdominal pain, constipation, bloody stool, diarrhea, heartburn, nausea, vomiting GENITOURINARY: Denies painful urination, bloody urine, frequent urination, urgency, leaking urine, impotence MUSCULOSKELETAL: Denies joint pain, muscle pain, leg swelling INTEGUMENTARY: Denies rash, itching, hair loss or increase NEUROLOGICAL: Denies headaches, dizziness, difficulty walking, numbness or tingling PSYCHIATRIC: Denies depression, anxiety, recurrent bad thoughts, mood swings, hallucinations PAST MEDICAL HISTORY: 1. DCIS right breast on oral chemotherapy (she does not know which medication) 2. Vitamin D deficiency 3. Arthritis 4. Coronary artery disease status post CABG and stenting 5. Hypertension 6. Hyperlipidemia 7. History of tobacco use PAST SURGICAL HISTORY: 1. Right breast mastectomy for 11/29/19 2. Right reconstructed breast revision with debridement of necrotic tissue 12/27/2019 3. CABG 2012 4. Cardiac catheterization 3 with stent placement 5. Fibroid cyst removal of right breast 6. Left knee surgery 7. Left first, fourth, fifth check her finger surgeries 8. Left elbow surgery FAMILY HISTORY: Father: Brain cancer. at 46 years old Mother: Cardiac disease, prediabetes, high blood pressure, hyperlipidemia. Alive Siblings: Sr.rare blood cancer. at 61 years old SOCIAL HISTORY: Prior smoker, stopped 1 month ago. Smoked for 46 years one half pack per day. Drinks alcohol socially. Denies IV or illicit drug use. She lives in the local area with her boyfriend. She is retired. Her healthcare proxy is her boyfriend. Her primary care provider is Dr. Az Buckley ALLERGIES: Please see below. HOME MEDICATIONS: Please see below. PHYSICAL EXAMINATION: CONSTITUTIONAL: No acute distress, resting comfortably, AAO x 3 EYES: PERRLA, EOM intact HENT, MOUTH: Normocephalic, atraumatic, moist mucous membranes, NECK: SUPPLE, no JVD, no lymphadenopathy, no carotid bruit CV: Regular rate and rhythm, S1S2 normal, no murmurs/rubs/gallops CHEST: right breast with multiple incisions on the under part. Exposed necrotic tissue throughout multiple areas of the incision with surround erythema. Nontender to touch, nonsuppurative, no foul odor. RESPIRATORY: Clear to auscultation bilaterally, no rales/rhonchi/wheezes GI: BS positive in 4 quadrants, soft, nontender, nondistended, no rebound or guarding, no organomegaly : Deferred MUSCULOSKELETAL: Normal ROM. No cyanosis, clubbing, swelling, joint deformity, extremity edema INTEGUMENTARY: Intact, no rashes, no lesions, no erythema NEUROLOGIC: Cranial Nerves II-XII are intact, no focal deficits PSYCHIATRIC: Mood and affect are normal LABORATORY DATA: Please see below IMAGING: None ASSESSMENT: 64-year-old female admitted for right reconstructed breast skin necrosis requiring right breast semiconductor assembler removal. PLAN: 1. Right reconstructed breast skin necrosis. RCRI Class II risk for low risk surgery. Director Personal removal planned for tomorrow by Dr. Syed. Nothing by mouth after midnight. Antibiotics per surgery. 2. Hypertension. Continue home losartan and amlodipine. 3. Coronary artery disease. Patient denies chest pain, shortness of breath, cough. Continue statin. Holding aspirin. 4. Chronic pain. Continue gabapentin. 5. Arthritis. Stable. Tylenol PRN 6. Hyperlipidemia. Continue statin. 7. Vitamin D deficiency. Continue vitamin supplement 8. Anxiety. Continue escitalopram. 9. DVT prophylaxis. SCDs. DISPOSITION: The patient is admitted for surgery tomorrow. Dr. Syed to follow and give specific orders. Vital Signs Vital Signs Date Time Temp Pulse Resp B/P (MAP) Pulse Ox O2 Delivery O2 Flow Rate FiO2 01/09/20 17:15 98.3 63 16 150/68 (95) 98 Room Air Home Medications Scheduled Amlodipine Besylate (Amlodipine Besylate) 10 Mg Tablet, 10 MG PO DAILY Aspirin (Aspirin EC) 81 Mg Tab, 81 MG PO DAILY Ergocalciferol (Vitamin D2) (Vitamin D2) 50,000 Units Cap, 50,000 UNITS PO QWEEK On Sundays Escitalopram Oxalate (Escitalopram Oxalate) 10 Mg Tab, 10 MG PO DAILY Exemestane (Exemestane) 25 Mg Tablet, 25 MG PO DAILY Gabapentin (Neurontin) 100 Mg Capsule, 200 MG PO BID Losartan Potassium (Losartan Potassium) 100 Mg Tablet, 100 MG PO QHS Rosuvastatin Calcium (Rosuvastatin Calcium) 40 Mg Tablet, 40 MG PO DAILY Rosuvastatin Calcium (Rosuvastatin Calcium) 40 Mg Tablet, 40 MG PO DAILY Scheduled PRN Oxycodone HCl (Oxycodone HCl) 5 Mg Tablet, 5 MG PO Q6HP PRN for PAIN PRN SEVERE PAIN (PS 8-10) Allergies Coded Allergies: azithromycin (Verified Allergy, Severe, swelling, 12/26/19) TAPE (Verified Allergy, Unknown, blister/itch, 12/27/19) lisinopril (Verified Adverse Reaction, Mild, cough, 12/26/19) A-FIB/CHADSVASC A-FIB History Current/History of A-Fib/PAF?: No Current PO Anticoag Therapy: No Age/Risk Factor Scoring CHADSVASC: CHADSVASC Response (Comments) Value Age Risk Factor Age < 65 years old 0 Gender Risk Factor Female 1 Hx of CHF No 0 Hx of HTN Yes 1 Hx of Stroke/TIA/or VTE No 0 Hx of Diabetes No 0 Hx of Vascular Disease No 0 Total 2 Treatment Treatment ordered: NONE (none ) Saira Yang MD January 09, 2020 17:58
--- NOTE | 2020-01-09 18:09 | CR.PDOC ---
Plastic Surgery Consultation Date of Consultation 01/09/20 History and Physical CONSULT REPORT FOR: Medicine Service REASON FOR CONSULTATION: Right breast open wound s/p mastectomy reconstruction. HISTORY OF PRESENT ILLNESS: 64 y/o female well known to our service. She underwent right mastectomy with SLNB with immediate pre pectoral reconstruction on 11/29/19. Patient developed partial necrosis of the flap for which was taken to OR for debridement on 12/27/19. Community Center Worker was left in place. 3 days ago she developed a small opening with collection, which opened spontaneously and now has a opening of the incision. Drain is in place and has serous drainage minimal. No fever, chills. Patient was sent for admission with plan for removal of tissue air force senior officer. PAST MEDICAL HISTORY: CAD, HTN, Tabacco abuse. PAST SURGICAL HISTORY: INCLUDES: 1. CABG 2. Right mastectomy with reconstruction. PREVIOUS ANESTHESIA REACTIONS: denies ALLERGIES: Please see below. FAMILY HISTORY: non contributory. HOME MEDICATIONS: Please see below. REVIEW OF SYSTEMS: GENERAL: Denies chills, reports weight gain,. HEENT: Denies blurred vision and double vision. Denies ear symptoms. Denies hoarseness. NECK: Denies any neck pain]. CARDIOVASCULAR: Denies chest pain and palpitations. MUSCULOSKELETAL: Denies arthralgias, back pain and thrombophlebitis. SKIN: Denies rash. Right breast open wound NEUROLOGIC: Denies headache, stroke and transient ischemic attack. PSYCHIATRIC: Denies anxiety and depression. ENDOCRINE: Denies thyroid disease. HEMATOLOGY/ONCOLOGY: Denies bleeding or clotting disorder. HEART: Denies any chest pains, palpitations, paroxysmal dyspnea, orthopnea. PULMONARY: Denies chronic cough, dyspnea and wheezing. GASTROINTESTINAL: Denies rectal bleeding, family history of colon cancer, constipation, diarrhea, dysphagia, heartburn and jaundice. GENITOURINARY: Denies dysuria, frequency, hematuria and nocturia. ENDOCRINE: Denies polydipsia, polyphagia, polyuria, heat or cold intolerance. INFECTIOUS: Denies any recent upper respiratory tract infection, UTI, need for use of antibiotics. NUTRITION: Reports good appetite. PHYSICAL EXAMINATION: VITALS SIGNS: Please see below. GENERAL APPEARANCE:Patient seen, laying in bed, awake, alert, and oriented. Comfortable, in no acute distress. SKIN: Warm and moist. Right breast with partially opened horizontal incision. No visible air force senior officer, visible artificial dermis. No redness. Clear yellow drainage. Drain in place. LUNGS: Clear to auscultation bilaterally. No wheezing appreciated. HEART: No chest wall abnormalities. Regular rate and rhythm with no murmurs appreciated. ABDOMEN: Abdomen is soft, non-tender, non-distended. EXTREMITIES: Extremities have no deformities. No edema identified. No calf tenderness. LABORATORY DATA: Please see below. IMPRESSION: H/o Right breast cancer. Acquired deformity of right breast and Nipple areolar complex s/p mastectomy. Right breast implant malfunction. Incision dehiscence. PLANS: Admit to the hospital for observation. NPO after midnight. OR in the morning for removal of right breast tissue air force senior officer and allomax material. Risks, benefits and alternatives of the procedure discussed with patient. Patient agrees to proceed. Vital Signs Vital Signs Date Time Temp Pulse Resp B/P (MAP) Pulse Ox O2 Delivery O2 Flow Rate FiO2 01/09/20 17:15 98.3 63 16 150/68 (95) 98 Room Air Home Medications Scheduled Amlodipine Besylate (Amlodipine Besylate) 10 Mg Tablet, 10 MG PO DAILY, (Reported) Aspirin (Aspirin EC) 81 Mg Tab, 81 MG PO DAILY, (Reported) Ergocalciferol (Vitamin D2) (Vitamin D2) 50,000 Units Cap, 50,000 UNITS PO QWEEK, (Reported) On Sundays Escitalopram Oxalate (Escitalopram Oxalate) 10 Mg Tab, 10 MG PO DAILY, (Reported) Exemestane (Exemestane) 25 Mg Tablet, 25 MG PO DAILY, (Reported) Gabapentin (Neurontin) 100 Mg Capsule, 200 MG PO BID, (Reported) Losartan Potassium (Losartan Potassium) 100 Mg Tablet, 100 MG PO QHS, (Reported) Rosuvastatin Calcium (Rosuvastatin Calcium) 40 Mg Tablet, 40 MG PO DAILY, (Reported) Rosuvastatin Calcium (Rosuvastatin Calcium) 40 Mg Tablet, 40 MG PO DAILY, (Reported) Scheduled PRN Oxycodone HCl (Oxycodone HCl) 5 Mg Tablet, 5 MG PO Q6HP PRN for PAIN, (Reported) PRN SEVERE PAIN (PS 8-10) Allergies Coded Allergies: azithromycin (Verified Allergy, Severe, swelling, 12/26/19) TAPE (Verified Allergy, Unknown, blister/itch, 12/27/19) lisinopril (Verified Adverse Reaction, Mild, cough, 12/26/19) OTTO RUDOLPH DO January 09, 2020 18:09
[2020-01-09] MEDS ORDERED: ACETAMINOPHEN TAB 650MG DOSE (2X325MG) PO PRN (18:15)
[2020-01-09 20:24] LABS: BASO # 0.1 10^3/uL (0.0-0.2); BASO % 0.8 % (0.0-1.0); EOS # 0.3 10^3/uL (0.0-0.5); EOS % 3.7 % (0.0-3.0); HEMATOCRIT 41.7 % (36.0-47.0); HEMOGLOBIN 14.2 g/dl (12.0-15.5); LYMPH % 23.5 % (24.0-44.0); MEAN CORPUSCULAR HEMOGLOBIN 31.2 pg (27.0-33.0); MEAN CORPUSCULAR HGB CONC 34.1 g/dl (32.0-36.5); MEAN CORPUSCULAR VOLUME 91.6 fl (80.0-96.0); MONO # 0.6 10^3/uL (0.0-0.8); NEUTROPHILS # 5.5 10^3/uL (1.5-8.5); NEUTROPHILS % 64.6 % (36.0-66.0); PLATELET COUNT, AUTOMATED 317 10^3/uL (150-450); RED BLOOD COUNT 4.55 10^6/uL (4.00-5.40); WHITE BLOOD COUNT 8.5 10^3/uL (4.0-10.0)
[2020-01-09 20:34] LABS: INR 0.91
[2020-01-09 20:40] LABS: BLOOD UREA NITROGEN 18 MG/DL (7-18); CALCIUM LEVEL 8.9 MG/DL (8.8-10.2); CARBON DIOXIDE LEVEL 26 MEQ/L (21-32); CHLORIDE LEVEL 108 MEQ/L (98-107); CREATININE FOR GFR 0.75 MG/DL (0.55-1.30); GLOMERULAR FILTRATION RATE > 60.0 (>45); GLUCOSE, FASTING 167 MG/DL (70-100); POTASSIUM SERUM 3.7 MEQ/L (3.5-5.1); SODIUM LEVEL 140 MEQ/L (136-145)
[2020-01-09] MEDS ORDERED: ROSUVASTATIN 10 MG TAB (CRESTOR) PO SCH (21:00)
[2020-01-09] MEDS: GABAPENTIN 100 MG CAP PO SCH (21:00)
[2020-01-09] MEDS ORDERED: LOSARTAN 50MG TABLET PO SCH (21:00)
[2020-01-09 22:00] VITALS: BP 142/67
[2020-01-10] MEDS ORDERED: UNRESOLVED PATIENT OWN MED ORDER XX SCH (00:01)
[2020-01-10 05:56] VITALS: BP 156/75
[2020-01-10] MEDS ORDERED: MIDAZOLAM INJ 2MG/2ML VIAL (J2250 PER 1MG) As Ordered ONE (06:51)
[2020-01-10] MEDS ORDERED: ONDANSETRON 4MG/2ML VIAL As Ordered ONE (06:51)
[2020-01-10] MEDS ORDERED: propofoL 200 MG/20 ML VIAL As Ordered ONE ×2 (06:51→13:27)
[2020-01-10] MEDS ORDERED: dexameTHASONE 4 MG/ML 1ML VIAL (J1100 PER 1MG) As Ordered ONE (06:51)
[2020-01-10] MEDS ORDERED: fentaNYL 100 MCG/2 ML INJECTION (J3010) As Ordered ONE (06:51)
[2020-01-10] MEDS ORDERED: LIDOCAINE 2% 100MG/5ML SDV (FOR ANES.) As Ordered ONE (06:51)
[2020-01-10 07:14] LABS: BASO # 0.1 10^3/uL (0.0-0.2); EOS # 0.4 10^3/uL (0.0-0.5); EOS % 4.9 % (0.0-3.0); HEMOGLOBIN 14.3 g/dl (12.0-15.5); LYMPH # 1.6 10^3/uL (1.5-5.0); LYMPH % 20.2 % (24.0-44.0); MEAN CORPUSCULAR HEMOGLOBIN 30.4 pg (27.0-33.0); MEAN CORPUSCULAR HGB CONC 33.3 g/dl (32.0-36.5); MEAN CORPUSCULAR VOLUME 91.5 fl (80.0-96.0); MONO # 0.8 10^3/uL (0.0-0.8); MONO % 9.7 % (0.0-5.0); NEUTROPHILS # 4.9 10^3/uL (1.5-8.5); NEUTROPHILS % 63.7 % (36.0-66.0); PLATELET COUNT, AUTOMATED 299 10^3/uL (150-450); WHITE BLOOD COUNT 7.7 10^3/uL (4.0-10.0)
[2020-01-10 07:26] LABS: INR 0.95; PROTHROMBIN TIME 12.4 SECONDS (11.8-14.0)
[2020-01-10 07:35] LABS: BLOOD UREA NITROGEN 15 MG/DL (7-18); CALCIUM LEVEL 8.4 MG/DL (8.8-10.2); CARBON DIOXIDE LEVEL 26 MEQ/L (21-32); CHLORIDE LEVEL 108 MEQ/L (98-107); CREATININE FOR GFR 0.64 MG/DL (0.55-1.30); GLOMERULAR FILTRATION RATE > 60.0 (>45); GLUCOSE, FASTING 92 MG/DL (70-100); POTASSIUM SERUM 4.3 MEQ/L (3.5-5.1); SODIUM LEVEL 140 MEQ/L (136-145)
[2020-01-10] MEDS ORDERED: BACITRACIN PWD 50,000 UNITS VIAL As Ordered ONE (07:56)
[2020-01-10] MEDS ORDERED: ceFAZolin 1GM VIAL (J0690 PER 500MG) As Ordered ONE (08:22)
[2020-01-10] MEDS ORDERED: GLYCOPYRROLATE INJ 0.2 MG/ML 2 ML VIAL As Ordered ONE (08:30)
[2020-01-10] MEDS ORDERED: ACETAMINOPHEN 1000MG 100ML IV BTL (OFIRMEV) (J0131 PER 10MG) As Ordered ONE (08:49)
[2020-01-10] MEDS ORDERED: SUGAMMADEX SODIUM 500 MG/5 ML VIAL (BRIDION) As Ordered ONE (08:50)
[2020-01-10] MEDS ORDERED: amLODIPine 10 MG TAB PO SCH (09:00)
[2020-01-10] MEDS ORDERED: ESCITALOPRAM OXALATE 10 MG TAB (LEXAPRO) PO SCH (09:00)
[2020-01-10] MEDS ORDERED: EXEMESTANE 25 MG PO SCH (09:00)
[2020-01-10] MEDS ORDERED: BUPIVACAINE HCL 0.25% 30ML VIAL As Ordered ONE (09:01)
[2020-01-10] MEDS ORDERED: ROCURONIUM BROMIDE 50 MG/5 ML VIAL As Ordered ONE (09:25)
[2020-01-10] MEDS ORDERED: ePHEDrine SULFATE 25 MG/5 ML(5MG/ML) SYRINGE As Ordered ONE (09:25)
[2020-01-10] MEDS ORDERED: PHENYLephrine HCL 500 MCG/5 ML (100MCG/ML) SYRINGE (J2370) As Ordered ONE (09:25)
--- NOTE | 2020-01-10 10:00 | POST-OPPD ---
Postoperative Procedure Note Date Of Procedure: January 10, 2020 PREOPERATIVE DIAGNOSIS: Right breast tissue sandwich machine operator exposure, open incision. POSTOPERATIVE DIAGNOSIS: Same FINDINGS: Exposed artificial dermis, incision dehiscence right reconstructed breast. PROCEDURE: Removal right breast tissue sandwich machine operator and Allomax tissue. SURGEON: Dr Rudolph ANESTHESIA: General SPECIMENS: Allomax material, Tissue sandwich machine operator ESTIMATED BLOOD LOSS: 10cc REPLACED: none DRAINS: 19 Black round COMPLICATIONS: none POSTOPERATIVE CONDITION: stable OTTO RUDOLPH DO January 10, 2020 10:00
[2020-01-10] MEDS ORDERED: ONDANSETRON 4MG/2ML VIAL IV PRN (10:15)
[2020-01-10] MEDS ORDERED: LR 1,000 ML IV SCH ×2 (10:15)
[2020-01-10] MEDS ORDERED: METOCLOPRAMIDE INJ 10MG/2ML VIAL (J2765 PER 1) IV PRN (10:15)
[2020-01-10] MEDS ORDERED: oxyCODONE 5MG TAB PO PRN (10:15)
[2020-01-10] MEDS ORDERED: fentaNYL 100 MCG/2 ML INJECTION (J3010) IV PRN (10:15)
[2020-01-10 11:00] VITALS: BP 129/64
[2020-01-10] MEDS: GABAPENTIN 100 MG CAP PO SCH (11:05)
[2020-01-10 11:06] VITALS: BP 129/64
[2020-01-10 11:30] VITALS: BP 131/67
[2020-01-10 12:30] VITALS: BP 132/66
[2020-01-10] MEDS ORDERED: ESCI10TA2 PO (13:45)
[2020-01-10] MEDS ORDERED: KEFL500C17 PO (13:45)
[2020-01-10] MEDS ORDERED: AMLO10TA5 PO (13:45)
--- NOTE | 2020-01-10 16:29 | DS.PDOC ---
Discharge Summary General Date of Admission January 09, 2020 at 16:59 Date of Discharge 01/10/20 Discharge Summary PROCEDURES PERFORMED DURING STAY:Removal right breast tissue childhood teacher and Allomax tissue ADMITTING DIAGNOSES: Right reconstructed breast skin necrosis Hypertension Coronary artery disease Chronic pain Arthritis Hyperlipidemia Vitamin D deficiency Anxiety. DISCHARGE DIAGNOSES: Right reconstructed breast skin necrosis Hypertension Coronary artery disease Chronic pain Arthritis Hyperlipidemia Vitamin D deficiency Anxiety. COMPLICATIONS/CHIEF COMPLAINT: Breast Cancer (Right). 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 As per patient, she underwent right-sided breast mastectomy on 11/29/19 after a diagnosis of DCIS of the right breast 10/2019. During her right-sided mastectomy there was a childhood teacher placed. She later had a right reconstructed revision on 12/27/2019 with a FAITH drain p laced. She had been following up as outpatient with Dr. Syed. Since her last visit there has been increased serosanguineous drainage, increased erythema around the incision sites, increased necrotic appearing tissue protruding from the incision sites. She followed up with Dr. Syed recently who is going to be removing right breast childhood teacher in the AM. The patient denies symptoms listed below under review of systems. She has no other associated symptoms including fever, nausea, vomiting, lethargy. HOSPITAL COURSE: During hospital stay following issue addressed Dr. Syed performed Removal right breast tissue childhood teacher and Allomax tissue. DISCHARGE MEDICATIONS: Please see below. ALLERGIES: Please see below. PHYSICAL EXAMINATION ON DISCHARGE: VITAL SIGNS: Please see below. CONSTITUTIONAL: No acute distress, resting comfortably, AAO x 3 EYES: PERRLA, EOM intact HENT, MOUTH: Normocephalic, atraumatic, moist mucous membranes, NECK: SUPPLE, no JVD, no lymphadenopathy, no carotid bruit CV: Regular rate and rhythm, S1S2 normal, no murmurs/rubs/gallops RESPIRATORY: Clear to auscultation bilaterally, no rales/rhonchi/wheezes GI: BS positive in 4 quadrants, soft, nontender, nondistended, no rebound or guarding, no organomegaly MUSCULOSKELETAL: Normal ROM. No cyanosis, clubbing, swelling, joint deformity, extremity edema INTEGUMENTARY: Intact, no rashes, no lesions, no erythema NEUROLOGIC: Cranial Nerves II-XII are intact, no focal deficits PSYCHIATRIC: Mood and affect are normal LABORATORY DATA: Please see below. PROGNOSIS: Fair ACTIVITY: [As tolerated]. DIET: Cardiac DISPOSITION: 01 Home, Self-Care. ITEMS TO FOLLOWUP ON ON OUTPATIENT: Follow-up with PCP and plastic surgeon DISCHARGE CONDITION: [Stable]. TIME SPENT ON DISCHARGE: Greater than 20 minutes. Vital Signs/I&Os Vital Signs Date Time Temp Pulse Resp B/P (MAP) Pulse Ox O2 Delivery O2 Flow Rate FiO2 01/10/20 12:30 97.9 59 17 132/66 (88) 97 Room Air 01/10/20 09:49 10 I&O- Last 24 Hours up to 6 AM 01/10/20 06:00 Intake Total 420 ml Output Total 800 ml Balance -380 ml Laboratory Data Labs 24H Laboratory Tests 2 01/09/20 20:11: Immature Granulocyte % (Auto) 0.4, Neutrophils (%) (Auto) 64.6, Lymphocytes (%) (Auto) 23.5L, Monocytes (%) (Auto) 7.0H, Eosinophils (%) (Auto) 3.7H, Basophils (%) (Auto) 0.8, Neutrophils # (Auto) 5.5, Lymphocytes # (Auto) 2.0, Monocytes # (Auto) 0.6, Eosinophils # (Auto) 0.3, Basophils # (Auto) 0.1, Nucleated Red Bl ood Cells % (auto) 0.0, Prothrombin Time 12.0, Prothromb Time International Ratio 0.91, Anion Gap 6L, Glomerular Filtration Rate > 60.0, Calcium Level 8.9 01/10/20 07:01: Immature Granulocyte % (Auto) 0.5, Neutrophils (%) (Auto) 63.7, Lymphocytes (%) (Auto) 20.2L, Monocytes (%) (Auto) 9.7H, Eosinophils (%) (Auto) 4.9H, Basophils (%) (Auto) 1.0, Neutrophils # (Auto) 4.9, Lymphocytes # (Auto) 1.6, Monocytes # (Auto) 0.8, Eosinophils # (Auto) 0.4, Basophils # (Auto) 0.1, Nucleated Red Blood Cells % (auto) 0.0, Prothrombin Time 12.4, Prothromb Time International Ratio 0.95, Anion Gap 6L, Glomerular Filtration Rate > 60.0, Calcium Level 8.4L CBC/BMP Laboratory Tests 01/09/20 20:11 01/10/20 07:01 Discharge Medications Scheduled Amlodipine Besylate (Amlodipine Besylate) 10 Mg Tablet, 10 MG PO DAILY, (Report ed) Amlodipine Besylate (Amlodipine Besylate) 10 Mg Tablet, 10 MG PO DAILY Aspirin (Aspirin EC) 81 Mg Tab, 81 MG PO DAILY, (Reported) Cephalexin (Keflex) 500 Mg Capsule, 1 CAP PO TID Ergocalciferol (Vitamin D2) (Vitamin D2) 50,000 Units Cap, 50,000 UNITS PO QWEEK, (Reported) On Sundays Escitalopram Oxalate (Escitalopram Oxalate) 10 Mg Tab, 10 MG PO DAILY, (Reported) Escitalopram Oxalate (Escitalopram Oxalate) 10 Mg Tablet, 10 MG PO DAILY Exemestane (Exemestane) 25 Mg Tablet, 25 MG PO DAILY, (Reported) Gabapentin (Neurontin) 100 Mg Capsule, 200 MG PO BID, (Reported) Losartan Potassium (Losartan Potassium) 100 Mg Tablet, 100 MG PO QHS, (Reported) Rosuvastatin Calcium (Rosuvastatin Calcium) 40 Mg Tablet, 40 MG PO DAILY, (Reported) Scheduled PRN Oxycodone HCl (Oxycodone HCl) 5 Mg Tablet, 5 MG PO Q6HP PRN for PAIN, (Reported) PRN SEVERE PAIN (PS 8-10) Allergies Coded Allergies: azithromycin (Verified Allergy, Severe, swelling, 12/26/19) TAPE (Verified Allergy, Unknown, blister/itch, 12/27/19) lisinopril (Verified Adverse Reaction, Mild, cough, 12/26/19) ESTHER SANCHEZ DO January 10, 2020 16:29
--- NOTE | 2020-01-12 10:32 | RO ---
DATE OF OPERATION: 01/10/2020 PREOPERATIVE DIAGNOSES: Right breast tissue head of precision targeting exposure and open incision.. POSTOPERATIVE DIAGNOSES: Right breast tissue head of precision targeting exposure and open incision. FINDINGS: Exposed artificial dermis incision, dehiscence, right reconstructed breast. PROCEDURE: Removal of right breast tissue head of precision targeting and AlloMax tissue. ATTENDING SURGEON: Yanely Syed DO OUTSIDE SALES CONSULTANT: ANESTHESIA: General. SPECIMENS SENT: AlloMax material and tissue head of precision targeting. BLOOD LOSS: 10 mL. No replacement. DRAINS: 19-[place] Anibal round drain. No complications. DESCRIPTION OF PROCEDURE: This is a 64-year-old female who has history of right breast cancer, and she underwent right mastectomy with sentinel lymph node biopsy with immediate prepectoral reconstruction with AlloMax and an head of precision targeting. She had complicated course by partial necrosis of the middle of the flap in the nipple areolar complex, which was excised. The necrosis was excised, and then the patient developed dehiscence with AlloMax showing, and she has been admitted to the hospital on 01/09/2020 at night, and we are ready to have the head of precision targeting and AlloMax removed. All risk and benefits and alternatives discussed with the patient in detail, and she is ready to proceed. Today, informed consent was confirmed, and then she was brought in to the operating room and placed in supine position. Preoperative antibiotics are given. Sequential stockings placed on the lower calves. We reexamined the incision. She has separation of the horizontal portion of the incision with visible AlloMax. She is prepped and draped in the usual sterile fashion. We started our procedure by making an incision along the border of the skin of the opening and then bluntly AlloMax from the flaps and from the chest wall. It did not incorporate on any portion of the reconstructed breast. So, it was removed with the head of precision targeting, as well, which was completely deflated at that point. All of that sent to pathology, and the wound was irrigated with bacitracin irrigation solution. The packet is reexamined. Has good vascular supply to all the flaps. We have debrided the internal part of the flaps and then using the scratchpad to roughen the edges and irrigated with bacitracin and then the skin flaps were closed in layers with 0 Vicryl and 3-0 Monocryl and 4-0 Monocryl without tension. Xeroform dressing was applied with bulky dressing and a surgical bra. The patient was extubated in the operating room without any difficulties and transferred to the recovery room in stable condition. Of note, the new drain was replaced with a 19 Anibal round drain through the same stab incision that was previously made.
== END 2020-01-10 14:45 | disposition home or self-care (01) ==
LOC: M MS5PR 16:59
PROVIDERS: ADMIT Plastic Surgery Surgery of the Hand; ATTEND Internal Medicine
DX: T81.31XA Disruption of external operation (surgical) wound, not elsewhere classified, initial encounter (principal); T85.49XA Other mechanical complication of breast prosthesis and implant, initial encounter; Y81.2 Prosthetic and other implants, materials and accessory general- and plastic-surgery devices associated with adverse incidents; D05.11 Intraductal carcinoma in situ of right breast; I11.9 Hypertensive heart disease without heart failure; E78.5 Hyperlipidemia, unspecified; I25.2 Old myocardial infarction; K21.9 Gastro-esophageal reflux disease without esophagitis; K44.9 Diaphragmatic hernia without obstruction or gangrene; E55.9 Vitamin D deficiency, unspecified; F41.9 Anxiety disorder, unspecified; M19.90 Unspecified osteoarthritis, unspecified site; Z95.1 Presence of aortocoronary bypass graft; Z95.5 Presence of coronary angioplasty implant and graft; Z87.891 Personal history of nicotine dependence; Z88.8 Allergy status to other drugs, medicaments and biological substances; Z88.1 Allergy status to other antibiotic agents; Z91.048 Other nonmedicinal substance allergy status; Z79.899 Other long term (current) drug therapy; Z79.82 Long term (current) use of aspirin; Z90.11 Acquired absence of right breast and nipple
CPT/HCPCS: 11971; 36415; 80048; 85025; 85610; 88300; J0131; J0690; J1100; J2250; J2370; J2405; J3010

== ENCOUNTER → 2020-02-27 | Outpatient (CLI) | payer MEDICAID ==
[~2020-02-27] MED LIST changes: +ALEN70TA74 PO
--- NOTE | 2020-03-02 13:50 | DEXA ---
AP SPINE L1 - L4 1.013 -1.4 0.0 LT FEMUR TOTAL 0.740 -2.1 -1.1 LT NECK 0.684 -2.5 -1.2 RT FEMUR TOTAL 0.851 -1.2 -0.2 RT NECK 0.750 -2.1 -0.7 TOTAL BODY TOTAL OTHER COMMENTS: There is low bone density of the spine and hips. The density of the spine is decreased 5.8% since 07/12/2004. The density of the left hip has decreased 9.4% since 07/12/2004. The density of the right hip has decreased 12.0% since 07/12/2004. FOLLOW-UP: Recommendation for the next bone density exam: 2 years. ALAINA
== END ==
LOC: M WHC 12:54
PROVIDERS: ATTEND Internal Medicine Medical Oncology
DX: D05.90 Unspecified type of carcinoma in situ of unspecified breast (principal); Z78.0 Asymptomatic menopausal state

== ENCOUNTER → 2020-03-13 | Outpatient (CLI) | payer MEDICAID ==
[~2020-03-13] MED LIST changes: -AMLO10TA5 PO; +AMLO1TAB24; +AMLO1TAB25 PO; -AMLO5TAB6; +CLOP75TA2 PO; +PANT40TA29 PO; -PANT40TA3 PO
[2020-03-13 12:25] LABS: BASO # 0.1 10^3/uL (0.0-0.2); BASO % 0.7 % (0.0-1.0); EOS # 0.3 10^3/uL (0.0-0.5); EOS % 3.9 % (0.0-3.0); HEMATOCRIT 46.2 % (36.0-47.0); HEMOGLOBIN 15.4 g/dl (12.0-15.5); LYMPH # 1.9 10^3/uL (1.5-5.0); LYMPH % 24.7 % (24.0-44.0); MEAN CORPUSCULAR HGB CONC 33.3 g/dl (32.0-36.5); MEAN CORPUSCULAR VOLUME 90.1 fl (80.0-96.0); MONO # 0.8 10^3/uL (0.0-0.8); MONO % 9.8 % (0.0-5.0); NEUTROPHILS # 4.7 10^3/uL (1.5-8.5); NEUTROPHILS % 60.6 % (36.0-66.0); PLATELET COUNT, AUTOMATED 298 10^3/uL (150-450); RED BLOOD COUNT 5.13 10^6/uL (4.00-5.40); WHITE BLOOD COUNT 7.7 10^3/uL (4.0-10.0)
[2020-03-13 12:56] LABS: ALBUMIN 3.9 GM/DL (3.2-5.2); ALT/SGPT 56 U/L (12-78); BILIRUBIN,TOTAL 0.4 MG/DL (0.2-1.0); BLOOD UREA NITROGEN 18 MG/DL (7-18); CALCIUM LEVEL 9.6 MG/DL (8.8-10.2); CARBON DIOXIDE LEVEL 25 MEQ/L (21-32); CHLORIDE LEVEL 105 MEQ/L (98-107); CREATININE FOR GFR 0.76 MG/DL (0.55-1.30); GLOMERULAR FILTRATION RATE > 60.0 (>45); GLUCOSE, FASTING 99 MG/DL (70-100); POTASSIUM SERUM 4.7 MEQ/L (3.5-5.1); SODIUM LEVEL 138 MEQ/L (136-145); TOTAL PROTEIN 7.6 GM/DL (6.4-8.2)
--- NOTE | 2020-03-13 15:50 | REP ---
REASON FOR EXAM: Low back pain. PRIORS: None. Vertebral body height and alignment is within normal limits. There is disc space narrowing seen moderately at every level, in particular posteriorly. The pedicles are intact bilaterally. There is no evidence of spondylolysis or spondylolisthesis. Degenerative facet joint changes are suspected at every level bilaterally, but particularly L4-5 and L5-S1. IMPRESSION: Chronic changes as described above. Electronically Signed by Rivas Iverson DO 03/13/2020 04:56 P
--- NOTE | 2020-03-13 16:03 | REP ---
REASON: Left-sided pain. PRIORS: None. There is mild symmetric appearing hip joint space narrowing bilaterally. There is no buttressing. There is no fracture, dislocation or subluxation. Mild degenerative changes are seen involving the sacroiliac joints. IMPRESSION: Chronic changes as described above. Electronically Signed by Rivas Iverson DO 03/13/2020 04:56 P
== END ==
LOC: M LAB 11:21
PROVIDERS: ATTEND Internal Medicine Medical Oncology
DX: D05.12 Intraductal carcinoma in situ of left breast (principal)

== ENCOUNTER → 2020-04-10 | Outpatient (CLI) | payer MEDICAID | LOC: M RAD 15:50 | PROVIDERS: ATTEND Internal Medicine Medical Oncology | DX: M54.5 Low back pain (principal) ==

== ENCOUNTER → 2020-05-10 | Outpatient (CLI) | payer MEDICAID ==
--- NOTE | 2020-05-31 10:50 | REP ---
BILATERAL LOWER EXTREMITY ARTERIAL STUDY: 05/10/20 CLINICAL: Lower extremity pain with history of bypass surgery. TECHNIQUE: Real time martins scale and color Doppler evaluation using linear high frequency transducer. FINDINGS: Moderate mixed partially calcified atheromatous plaquing is appreciated bilaterally extending through the visualized iliac arteries and lower extremities. Right lower extremity ROMIE equals 0.6. There is monophasic wave pattern noted extending from the common femoral artery to the ankle which may represent proximal disease. No focal stenosis or occlusion is appreciated to the right lower extremity. Left lower extremities demonstrate triphasic wave patterns through the common femoral and proximal superficial femoral arteries followed by biphasic arterial wave patterns. There is an area of 2:1 stenosis at the distal superficial artery. No further areas of stenosis or occlusion are identified. The left ROMIE equals 1.0. RIGHT LEFT Common Iliac Artery 89.1 115.3 cm/s External Iliac Artery 92.3 221 cm/s Common femoral artery 134 186 cm/s Profunda 64.3- Proximal superficial femoral artery 77.7 154.5 cm/s Mid-superficial femoral artery 74.0 119.5 cm/s Distal superificial femoral artery 59.1 222 cm/s Popliteal artery 29.2 55.1 cm/s Proximal ETA 19.4 36.7 cm/s Tibial peroneal trunk 23.4 35.0 cm/s Proximal FISCAL SPECIALIST 15.6 39.1 cm/s Distal FISCAL SPECIALIST 21.7 46.6 cm/s Distal ETA 19.4 20.7 cm/s IMPRESSION: 1. Moderate mixed bilateral atheromatous plaquing and velocities and phasicity as described above including monophasic wave pattern through the entire right lower extremity from the common femoral artery suggesting upstream disease. 2. Left lower extremity demonstrates 2:1 stenosis through the distal superificial femoral artery. [facility]
== END ==
LOC: M RAD 09:57
PROVIDERS: ATTEND Physician Assistant
DX: I70.213 Atherosclerosis of native arteries of extremities with intermittent claudication, bilateral legs (principal); F17.210 Nicotine dependence, cigarettes, uncomplicated

== ENCOUNTER → 2020-06-20 | Outpatient (CLI) | payer MEDICAID ==
[~2020-06-20] MED LIST changes: +ISOVUE-300 61% 50ML VIAL As Ordered ONE; +LIDOCAINE 1% MDV 20ML VIAL As Ordered ONE; +MIDAZOLAM INJ 2MG/2ML VIAL (J2250 PER 1MG) As Ordered ONE; +fentaNYL 100 MCG/2 ML INJECTION (J3010) As Ordered ONE
--- NOTE | 2020-06-20 08:52 | ROOPDOC ---
[facility] Report Of Operation Report of Operation DATE OF PROCEDURE: 06/20/20 PREPROCEDURE DIAGNOSES: Atherosclerosis of the [place] arteries with lifestyle limiting claudication right lower extremity POSTPROCEDURE DIAGNOSES: Same. PROCEDURE: 1. Ultrasound-guided access right and left common femoral arteries 2. Aortoiliofemoral arteriogram 3. Selection right superficial femoral artery with right lower extremity runoff 4. Kissing balloon-expandable bare metal stent placement bilateral common iliac arteries, 8 x 37 express stents 5. Completion arteriograms 6. Mynx closure bilateral common femoral artery SURGEON: Shirin Carlisle MD ANESTHESIA: Local anesthesia 10 mL lidocaine. Moderate intravenous conscious sedation was supervised by Dr. Carlisle. The patient was independent Pham at her by registered nurse assigned to the Department of radiology using automated blood pressure, EKG, and pulse oximetry. The detailed sedation record is permanently stored in the hospital information system. The following is a brief sedation record: Start time 07:36, stop time 08:12, Versed 1.5 mg IV, fentanyl 100 g IV, heparin 3000 units IV. CONTRAST: 41 mL Isovue-300 INDICATION FOR PROCEDURE: This is a very pleasant 65-year-old patient with a chronic history of right lower extremity arterial disease status post interventions on the lower extremity in [place] in the past. She has developed increasing lifestyle limiting claudication of the right lower extremity that is now very short distance claudication with long recovery time. This systematically affected her ability to do her daily activities. Risks benefits and alternatives to an arteriogram with potential intervention were explained to the patient. She is agreeable to proceed. Informed consent was obtained. INTERPRETATION: 1. The distal aorta is widely patent and there is widely patent flow through the left common iliac artery, hypogastric, external iliac artery. On the right however, the patient has a bulky calcified plaque at the origin of the common iliac artery extending a few millimeters into the aorta. She also has a near occlusive plaque just distal to this in the common iliac artery. Beyond this, the common iliac artery hypogastric and external iliac artery and widely patent. Both hypogastric arteries are very diminutive in size. 2. The right common femoral artery has significant posterior wall plaque but is otherwise patent with good runoff into the profunda in the superficial femoral artery. There is no significant stenosis noted in the SFA, popliteal artery on the right. There is three-vessel tibial runoff to the ankle, and the posterior tibial artery is the main runoff through the foot to the distal toes. 3. After balloon-expandable stents were placed in bilateral common iliac a rteries, there was widely patent flow through both iliac systems with no extravasation embolization or dissections. No significant residual stenosis remained. REPORT OF OPERATION: The patient was brought to the angiographic suite in stable condition. Her bilateral groins were prepped and draped in a sterile fashion. A timeout was performed. Sedation was administered without complication. Local anesthesia was administered to the skin and subcutaneous tissue over the left common femoral artery. A microneedle was used to access the artery under ultrasound guidance. A wire was passed through this access and the needle was removed. A 4 Mosotho sheath was placed and flushed with saline. A Glidewire and flushing catheter were advanced into the distal aorta. Aortoiliofemoral arteriograms were performed. Please see interpretation above. We then went up and over the bifurcation and were able to cross through the near occlusion at the proximal right common iliac artery. We selected the right superficial femoral artery and right lower extremity runoff was performed. Please see interpretation above. We then exchange the sheath over Glidewire for 7 Mosotho sheath and flushed the sheath with saline. Ultrasound was used to guide access to the right common femoral artery after anesthetizing with local anesthesia. A microneedle was used to access the artery and a wire was passed through this access and a 4 Mosotho sheath was placed and flushed with saline, similar to our access on the left. We then advanced a Glidewire through this access and exchange the sheath for 7 Mosotho sheath and flushed the sheath with saline. Both Glidewire were advanced into the aorta under fluoroscopic guidance. Heparin was given and allowed circulate. We then selected 8 x 37 express stents. In order to protect the left common iliac artery origin, and treat the very proximal aspect of the stenosis in the right common iliac artery, kissing stents were placed. The stents were positioned and quick arteriogram confirmed good positioning. The stents were deployed under fluoroscopic guidance. Arteriograms following stent placement showed widely patent flow through both common iliac arteries with no dissections, embolizations, or extravasation. The patient reported that her right foot felt much warmer post stent placement. Mynx closure devices were deployed sequentially in the left than the right femoral arteries. Good hemostasis was noted and pressure was held for 5 minutes and sterile dressings were applied. The patient was then taken to recovery in stable condition. She tolerated the procedure and the sedation well. ESTIMATED BLOOD LOSS: Approximately 5 mL. COMPLICATIONS: None. PLAN: Okay to resume home diet medications. Patient will need 75 mg of Plavix daily for 60 days postop placement. The patient is again strongly encouraged to quit smoking. No strenuous exercise or lifting greater than 5 pounds for 72 hours. The patient will follow up in clinic in a week and we will see her to check her groin access sites and her perfusion. We appreciate the opportunity to participate in the care of this patient. SHIRIN CARLISLE MD Jun 20, 2020 08:52
[2020-06-20 12:30] VITALS: BP 179/78
== END ==
LOC: M IRPRO 06:43
PROVIDERS: ATTEND Surgery Vascular Surgery
DX: I70.213 Atherosclerosis of native arteries of extremities with intermittent claudication, bilateral legs (principal); I10 Essential (primary) hypertension; F17.210 Nicotine dependence, cigarettes, uncomplicated; Z79.82 Long term (current) use of aspirin; Z79.899 Other long term (current) drug therapy; Z88.1 Allergy status to other antibiotic agents; Z88.8 Allergy status to other drugs, medicaments and biological substances
CPT/HCPCS: 37221; 75710; 99152; 99153; C1760; C1769; C1876; C1887; C1894; J1644; J2250; J3010; Q9967

== ENCOUNTER → 2020-07-30 | Outpatient (CLI) | payer MEDICAID ==
[~2020-07-30] MED LIST changes: -ISOVUE-300 61% 50ML VIAL As Ordered ONE; +LABE100T4; -LABE10TAB; -LIDOCAINE 1% MDV 20ML VIAL As Ordered ONE; -MIDAZOLAM INJ 2MG/2ML VIAL (J2250 PER 1MG) As Ordered ONE; -fentaNYL 100 MCG/2 ML INJECTION (J3010) As Ordered ONE
--- NOTE | 2020-07-30 13:32 | REP ---
INDICATION: CLAUDICATION. COMPARISON: Comparison study 05/10/2020.. TECHNIQUE: Bilateral lower extremity arterial Doppler sonography. FINDINGS: Ankle brachial indices are calculated at 0.88 on the right and the left respectively. Moderate plaquing is seen in the common femoral arteries bilaterally. Increased velocity is observed in the right common femoral artery. Waveforms improved in the right lower extremity from prior study. Now biphasic and triphasic. No high-grade stenosis seen on the right. On the left no significant stenosis is seen. Mildly elevated systolic velocities are observed in the left superficial femoral artery proximally. Patent bilateral iliac stents are noted. Some difficulty imaging these. Right lower extremity arterial Doppler velocity chart: Right GRACY stent 188 cm/S Right EIA 174 Right INTERACTIVE MARKETING STRATEGIST PSV 280 cm/S Profundal 139 Proximal SFA 146 Mid SFA 146 Distal SFA 107 Popliteal 125-70 Proximal ASHUTOSH 46 Tibial-peroneal trunk 68 Proximal PROGRAMMING INTERN 72 Distal PROGRAMMING INTERN 48 Distal ASHUTOSH 39 Left lower extremity arterial Doppler velocity chart: Left GRACY stent 122 cm/S Left EIA obscured Left INTERACTIVE MARKETING STRATEGIST PSV 153 cm/S Profundal 115 Proximal SFA 218-120 Mid SFA 117 Distal SFA 63 Popliteal 66 Proximal ASHUTOSH 43 Tibial-peroneal trunk 40 Proximal PROGRAMMING INTERN 44 Distal PROGRAMMING INTERN 43 Distal ASHUTOSH 30 IMPRESSION: Bilateral lower extremity duplex arterial ultrasound findings as above. <Electronically signed by Rolf Rubio > 07/30/20 [id number]
== END ==
LOC: M RAD 09:54
PROVIDERS: ATTEND Physician Assistant
DX: I70.213 Atherosclerosis of native arteries of extremities with intermittent claudication, bilateral legs (principal)

== ENCOUNTER → 2020-10-24 | Outpatient (CLI) | payer MEDICAID ==
[~2020-10-24] MED LIST changes: -ALEN70TA74 PO; +ALEN70TA82 PO; +ESCI10TA16 PO; -ESCI10TA2 PO
--- NOTE | 2020-10-24 15:10 | REPMRS ---
Patient History The patient states she had a clinical breast exam in 10/2019 Patient is postmenopausal and has history of cancer in the right breast at age 64. Family history of breast cancer at age 50 or over in maternal aunt. Malignant stereotactic core biopsy of the right breast, October 25, 2019. Mastectomy of the right breast, 2019. Took unspecified hormones for 1 year. Diagnostic Unilateral Mammo: Left Breast - October 24, 2020 - Exam #: [id number] CC and MLO view(s) were taken of the left breast. Technologist: Yanira Peng, Technologist Prior study comparison: October 06, 2019, bilateral digital mammo screening bilat, performed at [facility]. FINDINGS: There are scattered fibroglandular densities. There has been no change in the appearance of the left breast parenchyma in the interval since the prior examination. No mass, architectural distortion, or microcalcific grouping has developed. No suspicious finding. 3-D tomosynthesis shows no additional findings. Assessment: BI-RADS/ACR category 2 mammogram. Benign Findings. Recommendation Routine screening mammogram of the left breast in 1 year. This mammogram was interpreted with the aid of an FDA-approved computer-aided dectection system. Electronically Signed By: Rolf Rubio MD 10/24/20 [id number]
== END ==
LOC: M WHC 14:19
PROVIDERS: ATTEND Surgery
DX: D05.11 Intraductal carcinoma in situ of right breast (principal); Z90.11 Acquired absence of right breast and nipple
CPT/HCPCS: 77065; G0279

== ENCOUNTER → 2020-11-14 | Outpatient (REF) | payer MEDICAID | LOC: M SFHCWAGY 15:12 | PROVIDERS: ATTEND Surgery | DX: D05.11 Intraductal carcinoma in situ of right breast (principal); R22.2 Localized swelling, mass and lump, trunk ==

== ENCOUNTER → 2021-06-07 | Outpatient (CLI) | payer MEDICAID ==
[~2021-06-07] MED LIST changes: +ERGO500029 PO; +ISOVUE-300 61% 50ML VIAL As Ordered ONE; +LEXA1TAB PO; +LIDOCAINE 1% MDV 20ML VIAL As Ordered ONE; -VITA50005 PO; +methylPREDNISolone SUSP 40MG/ML 1ML VIAL (DEPO MEDROL) As Ordered ONE
--- NOTE | 2021-06-07 16:17 | REP ---
INDICATION: PAIN IN RT HIP. COMPARISON: None. TECHNIQUE: The procedure was performed under the direct supervision of Dr. Rubio. The benefits and risks including but not limited to pain infection and bleeding and anaphylaxis were explained to the patient and informed consent was obtained. The right femoral neck was localized using fluoroscopic guidance. The skin was prepped and draped in a sterile fashion. 1% lidocaine was used as a local anesthetic. Using fluoroscopic guidance, and last image hold technology, a 22-gauge spinal needle was inserted and advanced to the femoral neck. 0.5 ml of Isovue-300 was injected to verify placement. Five ml of a solution containing 3 ml of 1% Xylocaine and 2 mL of Depo-Medrol 40 mg was injected. The needle was then removed. The patient tolerated the procedure well and there were no immediate complications. Less than 6 seconds of fluoro time was utilized for this procedure. FINDINGS: None IMPRESSION: Fluoro guidance for right hip injection. <Electronically signed by Artemio Carpenter > 06/07/21 [id number] <Electronically signed by Rolf Rubio > 06/07/21 [id number]
== END ==
LOC: M RADPRO 10:59
PROVIDERS: ATTEND Physician Assistant Surgical
DX: M25.551 Pain in right hip (principal)
CPT/HCPCS: 20610; 77002; J1030; Q9967

== ENCOUNTER → 2021-06-13 | Outpatient (CLI) | payer MEDICAID ==
[~2021-06-13] MED LIST changes: -ISOVUE-300 61% 50ML VIAL As Ordered ONE; -LIDOCAINE 1% MDV 20ML VIAL As Ordered ONE; -methylPREDNISolone SUSP 40MG/ML 1ML VIAL (DEPO MEDROL) As Ordered ONE
--- NOTE | 2021-06-13 15:47 | REP ---
INDICATION: CLAUDICATION COMPARISON: None. TECHNIQUE: Real-time sonographic evaluation of the bilateral lower extremity arteries. FINDINGS: All numeric values represent peak systolic velocities in cm/S EC On the right: The ankle brachial index is 1.04. External iliac artery: 248 triphasic PRN PHYSICAL THERAPIST: 296 triphasic Profunda: 237 triphasic SFA proximal: 150 biphasic SFA mid: 103 biphasic SFA distal: 110 biphasic Popliteal: 79/85 biphasic ASHUTOSH proximal: 72 biphasic Tibioperoneal trunk: 70 biphasic PERFORATING MACHINE OPERATOR proximal: 100 biphasic PERFORATING MACHINE OPERATOR distal: 64 biphasic ASHUTOSH distal: 48 biphasic On the left: The ankle brachial index is 0.97 External iliac artery: 186 triphasic PRN PHYSICAL THERAPIST: 146 triphasic Profunda: 157 biphasic SFA proximal: 216 biphasic SFA mid: 129 biphasic SFA distal: 112/342 biphasic Popliteal: 66/74 biphasic ASHUTOSH proximal: 55 biphasic Tibioperoneal trunk: 72 biphasic PERFORATING MACHINE OPERATOR proximal: 71 biphasic PERFORATING MACHINE OPERATOR distal: 36 biphasic ASHUTOSH distal: 33 biphasic Mild to moderate plaque was seen bilaterally. ASHUTOSH proximal: 55 biphasic IMPRESSION: As above <Electronically signed by Rivas Iverson > 06/13/21 [id number]
== END ==
LOC: M RAD 13:51
PROVIDERS: ATTEND Surgery Vascular Surgery
DX: I70.213 Atherosclerosis of native arteries of extremities with intermittent claudication, bilateral legs (principal)

== ENCOUNTER → 2021-08-12 | Outpatient (CLI) | payer MEDICAID ==
[~2021-08-12] MED LIST changes: +CHLO125TA PO; +DIFI200T PO; +GABA-1171 PO; +LOSA100T45 PO; -LOSA100T50 PO; +MELO7.5T35 PO; +POTA1TAB23 PO
== END ==
LOC: M LABSMTC 10:58
PROVIDERS: ATTEND Anesthesiology
DX: Z01.818 Encounter for other preprocedural examination (principal); Z11.52 Encounter for screening for COVID-19

== ENCOUNTER 2021-08-16 09:37 | Day surgery (SDC) | payer MEDICAID ==
[~2021-08-16] VITALS: Ht 167.6 cm; Wt 67.0 kg
[~2021-08-16 09:37] MED LIST changes: +LIDOCAINE 2% 100MG/5ML SDV (FOR ANES.) As Ordered ONE; +LR 1,000 ML IV ONE; +MIDAZOLAM INJ 2MG/2ML VIAL (J2250 PER 1MG) As Ordered ONE; +ROCURONIUM BROMIDE 50 MG/5 ML VIAL As Ordered ONE; +fentaNYL 250 MCG/5 ML INJECTION As Ordered ONE; +propofoL 200 MG/20 ML VIAL As Ordered ONE
[2021-08-16] MEDS ORDERED: LIDOCAINE W/EPINEPHRINE 1% 20ML VIAL As Ordered ONE (10:56)
[2021-08-16] MEDS ORDERED: OXYMETAZOLINE 0.05% NASAL SPRAY (AFRIN) As Ordered ONE (11:01)
[2021-08-16] MEDS ORDERED: ONDANSETRON 4MG/2ML VIAL As Ordered ONE (11:32)
[2021-08-16] MEDS ORDERED: KETOROLAC 60MG 2ML VIAL As Ordered ONE (11:32)
[2021-08-16] MEDS ORDERED: ACETAMINOPHEN 1000MG 100ML IV BTL (OFIRMEV) (J0131 PER 10MG) As Ordered ONE (11:33)
[2021-08-16] MEDS ORDERED: dexameTHASONE 4 MG/ML 1ML VIAL (J1100 PER 1MG) As Ordered ONE (11:33)
[2021-08-16] MEDS ORDERED: SUGAMMADEX SODIUM 500 MG/5 ML VIAL (BRIDION) As Ordered ONE (11:54)
[2021-08-16] MEDS ORDERED: fentaNYL 100 MCG/2 ML INJECTION As Ordered ONE (11:57)
[2021-08-16] MEDS ORDERED: ONDANSETRON 4MG/2ML VIAL IV PRN (12:25)
[2021-08-16] MEDS ORDERED: fentaNYL 100 MCG/2 ML INJECTION IV PRN (12:25)
[2021-08-16] MEDS ORDERED: LR 1,000 ML IV SCH ×2 (12:25)
[2021-08-16] MEDS: oxyCODONE 5MG TAB PO PRN ×2 (12:52→13:26)
[2021-08-16 14:25] VITALS: BP 119/58
[2021-09-23] MEDS ORDERED: EXEM25TA PO (14:23)
== END 2021-08-16 14:25 | disposition home or self-care (01) ==
LOC: M SDC 09:37
PROVIDERS: ATTEND Dentist Oral and Maxillofacial Surgery
DX: K02.9 Dental caries, unspecified (principal); I10 Essential (primary) hypertension; E78.5 Hyperlipidemia, unspecified; F17.218 Nicotine dependence, cigarettes, with other nicotine-induced disorders; I25.2 Old myocardial infarction; Z98.61 Coronary angioplasty status; K21.9 Gastro-esophageal reflux disease without esophagitis; K44.9 Diaphragmatic hernia without obstruction or gangrene; I25.10 Atherosclerotic heart disease of native coronary artery without angina pectoris; Z79.82 Long term (current) use of aspirin; Z92.21 Personal history of antineoplastic chemotherapy; Z88.8 Allergy status to other drugs, medicaments and biological substances; Z88.1 Allergy status to other antibiotic agents; Z85.3 Personal history of malignant neoplasm of breast; Z79.899 Other long term (current) drug therapy
CPT/HCPCS: 88300; D7210; D7310; D9223; J0131; J1100; J1885; J2250; J2405; J3010

== ENCOUNTER → 2021-11-01 | Outpatient (CLI) | payer MEDICAID ==
[~2021-11-01] MED LIST changes: -LIDOCAINE 2% 100MG/5ML SDV (FOR ANES.) As Ordered ONE; -LR 1,000 ML IV ONE; -MIDAZOLAM INJ 2MG/2ML VIAL (J2250 PER 1MG) As Ordered ONE; -ROCURONIUM BROMIDE 50 MG/5 ML VIAL As Ordered ONE; -fentaNYL 250 MCG/5 ML INJECTION As Ordered ONE; -propofoL 200 MG/20 ML VIAL As Ordered ONE
== END ==
LOC: M WHC 10:25
PROVIDERS: ATTEND Surgery
DX: D05.11 Intraductal carcinoma in situ of right breast (principal); Z90.11 Acquired absence of right breast and nipple
CPT/HCPCS: 77065; G0279

== ENCOUNTER → 2021-11-12 | Outpatient (CLI) | payer MEDICAID ==
[~2021-11-12] MED LIST changes: +ISOVUE-370 76% 100ML VIAL As Ordered ONE
== END ==
LOC: M RAD 09:15 → M PLAIMG 09:15
PROVIDERS: ATTEND Internal Medicine Gastroenterology
DX: R63.4 Abnormal weight loss (principal); I70.213 Atherosclerosis of native arteries of extremities with intermittent claudication, bilateral legs; K76.89 Other specified diseases of liver
CPT/HCPCS: 74174; Q9967

== ENCOUNTER → 2022-10-13 | Outpatient (CLI) | payer OTHER, MEDICAID ==
[~2022-10-13] MED LIST changes: -ISOVUE-370 76% 100ML VIAL As Ordered ONE; -LABE100T4; +LABE100T6
== END ==
LOC: M RAD 09:24
PROVIDERS: ATTEND Family Medicine
DX: F17.210 Nicotine dependence, cigarettes, uncomplicated (principal)

== ENCOUNTER → 2022-10-30 | Outpatient (CLI) | payer OTHER, MEDICAID | LOC: M WUC 13:49 | PROVIDERS: ATTEND Physician Assistant | DX: S63.8X2A Sprain of other part of left wrist and hand, initial encounter (principal); S63.8X1A Sprain of other part of right wrist and hand, initial encounter; Y92.9 Unspecified place or not applicable; Y93.9 Activity, unspecified ==

== ENCOUNTER → 2022-11-04 | Outpatient (CLI) | payer OTHER, MEDICAID | LOC: M WHC 10:50 | PROVIDERS: ATTEND Nurse Practitioner Women's Health | DX: D05.11 Intraductal carcinoma in situ of right breast (principal); Z90.11 Acquired absence of right breast and nipple | CPT/HCPCS: 77065; G0279 ==

== ENCOUNTER → 2023-04-01 | Outpatient (CLI) | payer OTHER, MEDICAID ==
[~2023-04-01] MED LIST changes: -LOSA100T45 PO; +LOSA100T46 PO
== END ==
LOC: M RAD 09:56
PROVIDERS: ATTEND Surgery Vascular Surgery
DX: I70.213 Atherosclerosis of native arteries of extremities with intermittent claudication, bilateral legs (principal); R93.6 Abnormal findings on diagnostic imaging of limbs

== ENCOUNTER → 2023-04-30 | Outpatient (CLI) | payer OTHER, MEDICAID | LOC: M RAD 09:54 | PROVIDERS: ATTEND Surgery Vascular Surgery | DX: I65.23 Occlusion and stenosis of bilateral carotid arteries (principal); I73.9 Peripheral vascular disease, unspecified ==

== ENCOUNTER → 2023-11-17 | Outpatient (CLI) | payer OTHER, MEDICAID ==
[~2023-11-17] MED LIST changes: +EZET10TA21; +GABA-282
== END ==
LOC: M WHC 09:01
PROVIDERS: ATTEND Nurse Practitioner Women's Health
DX: D05.11 Intraductal carcinoma in situ of right breast (principal)
CPT/HCPCS: 77065; G0279

== ENCOUNTER → 2023-11-23 | Outpatient (CLI) | payer OTHER, MEDICAID | LOC: M WHC 08:58 | PROVIDERS: ATTEND Internal Medicine Medical Oncology | DX: C50.919 Malignant neoplasm of unspecified site of unspecified female breast (principal); M85.89 Other specified disorders of bone density and structure, multiple sites ==